=== PATIENT | male | born 1930 | race Caucasian/White ===

== ENCOUNTER 2016-06-29 15:39 | Inpatient (IN) | payer MEDICARE, BC ==
[~2016-06-29] VITALS: Ht 177.8 cm; Wt 80.0 kg
[~2016-06-29 15:39] MED LIST: ENOX40P SQ; ESCI10TA PO; FEXO180T PO; FLUD.1 PO; HYDR10TA23 PO; KNEE IMMOBILIZE1 MIS; MIDO5TAB PO; NAME10TA PO; PLAV75TA29 PO; SODI1TAB PO; TAMS5CAP PO; THERTAB15 PO; ULTR50TA5 PO
[2016-06-29 15:46] VITALS: BP 125/67; PULSE 79; RESP 16; TEMP 98.2; O2SAT 97
[2016-06-29 16:47] LABS: AUTOMATED NEUTROPHIL # 16.9 TH/MM3 (1.8-7.7); BASOPHIL # 0.1 TH/MM3 (0-0.2); BASOPHIL % 0.5 % (0.0-2.0); EOSINOPHIL # 0.2 TH/MM3 (0-0.4); EOSINOPHIL % 1.2 % (0.0-4.0); HEMO FLAGS DIFF FINAL; LYMPH % 3.1 % (9.0-44.0); LYMPHOCYTE # 0.6 TH/MM3 (1.0-4.8); MEAN CELL VOLUME 85.4 FL (80.0-100.0); MEAN CORPUSCULAR HEMOGLOBIN 28.3 PG (27.0-34.0); MEAN CORPUSCULAR HGB CONC 33.1 % (32.0-36.0); NEUT % 88.2 % (16.0-70.0); PLATELET COUNT 357 TH/MM3 (150-450); RED BLOOD COUNT 4.45 MIL/MM3 (4.50-5.90); RED CELL DISTRIBUTION WIDTH 14.6 % (11.6-17.2); WHITE BLOOD COUNT 19.2 TH/MM3 (4.0-11.0)
[2016-06-29 16:56] LABS: APTT (PATIENT) 29.4 SEC (24.3-30.1); PROTHROMBIN TIME - PATIENT 10.7 SEC (9.8-11.6)
[2016-06-29 17:13] LABS: POTASSIUM 3.8 MEQ/L (3.5-5.1)
[2016-06-29] MEDS ORDERED: MILKSUS PO (17:15)
[2016-06-29] MEDS ORDERED: THERTAB15 PO (17:15)
[2016-06-29] MEDS ORDERED: MAPA325T PO (17:15)
[2016-06-29] MEDS ORDERED: ARIC10TA PO (17:15)
[2016-06-29] MEDS ORDERED: DULC10SU3 RECTAL (17:17)
[2016-06-29 17:24] LABS: BACTERIA, URINE MANY /hpf; BLOOD, URINE MOD (NEG); COMMENT (UR) CULTURE INDICATED; CULTURE IF INDICATED CULTURE INDICATED; GLUCOSE,URINE NEG (NEG); KETONE, URINE NEG (NEG); MUCUS URINE MANY /lpf (OCC); NITRITE,URINE NEG (NEG)
[2016-06-29 17:29] LABS: URINE COLOR RED (YELLW/STRAW)
[2016-06-29] MEDS ORDERED: SODIUM CHLOR 0.9% 1000 ML INJ 1,000 ML IV ONE (17:37)
[2016-06-29] MEDS ORDERED: CEFEPIME INJ 2,000 MG in SODIUM CHLORIDE 0.9% INJ 100 ML IV STA (17:37)
--- NOTE | 2016-06-29 17:41 | PD ---
HPI Chief Complaint: Bleeding Time Seen by Provider: 17:40 Travel History International Travel<30 days: No Contact w/Intl Traveler<30days: No Traveled to known affect area: No History of Present Illness HPI Patient is a 85-year-old male brought from an [facility] for hematuria. Patient history of Alzheimer's disease and is able to provide much history, his son is present with power of litigation attorney associate and visits him daily. He states his dad's been having worsening mental status the last week after he developed urinary retention and a Locke catheter was placed. Today he noticed blood in the Locke bag while at the assisted living facility in the that was complaining of lower abdominal pain and occasional back pain. The patient denies any back pain currently. He has bowel movement every other day, denies melena or hematochezia. Per the son staff state that he has not had any blood in his stool. He does have a history of bleeding ulcer. He is on Lovenox as he has a left tibial fracture from a fall on June 11. Patient eyes any fever, chest pain, shortness of breath, headache, dizziness. He denies diarrhea. The son states he has had decreased oral intake. PFSH Past Medical History Hx Anticoagulant Therapy: No Arthritis: Yes Asthma: No Autoimmune Disease: No Anxiety: No Depression: Yes Heart Rhythm Problems: Yes Cancer: No Cardiovascular Problems: Yes (PACEMAKER) High Cholesterol: No Chemotherapy: No Chest Pain: No Congestive Heart Failure: No COPD: No Cerebrovascular Accident: No Diabetes: No Diminished Hearing: No Endocrine: No Gastrointestinal Disorders: Yes (ulcer bleeding) GERD: No Genitourinary: No Hiatal Hernia: No Immune Disorder: No Kidney Stones: No Medical other: Yes (URINARY RETENTION) Musculoskeletal: No Neurologic: Yes (head injury, encephalopathy, memory deficit, L foot drop, ataxia) Psychiatric: Yes Reproductive: No Respiratory: No Migraines: No Radiation Therapy: No Renal Failure: No Seizures: No Sickle Cell Disease: No Sleep Apnea: No Thyroid Disease: No Ulcer: Yes Tetanus Vaccination: Unknown ?: Not Past Surgical History Abdominal Surgery: Yes (BLEEDING ULCER) AICD: No Arteriovenous Shunt: No Body Medical Devices: rib fracture fixation device Cardiac Surgery: Yes (PACE MAKER) Ear Surgery: No Endocrine Surgery: No Eye Surgery: Yes (cataracts) Genitourinary Surgery: No Gynecologic Surgery: No Hysterectomy: No Insulin Pump: No Joint Replacement: No Oral Surgery: No Pacemaker: Yes Thoracic Surgery: No Other Surgery: Yes Social History Alcohol Use: No Tobacco Use: No Substance Use: No Allergies-Medications (Allergen,Severity, Reaction): Coded Allergies: Neosporin (Verified Allergy, Mild, rash, 06/29/16) per son Penicillin (Verified Adverse Reaction, Intermediate, rash , 06/29/16) Reported Meds & Prescriptions Reported Meds & Active Scripts Active Ultram (Tramadol HCl) 50 Mg Tab 50 Mg PO BID PRN 3 Days Flomax (Tamsulosin HCl) 0.4 Mg Cap 0.4 Mg PO HS 30 Days Midodrine 5 Mg Tab 5 Mg PO TID 30 Days Namenda (Memantine) 10 Mg Tab 10 Mg PO BID 30 Days Hydralazine (Hydralazine HCl) 10 Mg Tab 10 Mg PO Q6HR 10 Days Fludrocortisone (Fludrocortisone Acetate) 0.1 Mg Tab 0.1 Mg PO EVERY OTHER DAY 30 Days Escitalopram (Escitalopram Oxalate) 10 Mg Tab 10 Mg PO DAILY 30 Days Lovenox Inj (Enoxaparin Sodium) 40 Mg/0.4 Ml Syr 40 Mg SQ Q24H 10 Days Plavix (Clopidogrel Bisulfate) 75 Mg Tab 75 Mg PO DAILY 30 Days Reported Dulcolax Supp (Bisacodyl) 10 Mg Supp 10 Mg RECTAL HS PRN Mapap (Acetaminophen) 325 Mg Tab 650 Mg PO Q4HR PRN Milk of Magnesia Liq (Magnesium Hydroxide) 400 Mg/5 Ml Susp 30 Ml PO HS PRN Aricept (Donepezil) 10 Mg Tab 10 Mg PO DAILY Thera/Beta-Carotene (Multiple Vitamin) 1 Tab Tab 1 Tab PO DAILY Review of Systems ROS Limitations: Altered Mental Status General / Constitutional: No: Fever HENT: No: Headaches, Lightheadedness, Sore Throat Cardiovascular: No: Chest Pain or Discomfort Respiratory: No: Cough, Shortness of Breath Gastrointestinal: Positive: Abdominal Pain, No: Nausea, Vomiting, Diarrhea, Hematochezia Genitourinary: Positive: Other (Locke in place) Physical Exam Narrative GENERAL: Well-developed and well-nourished adult male in no acute distress. SKIN: Warm and dry. Decreased turgor without tenting. HEAD: Normocephalic and atraumatic. EYES: PERRL bilaterally, 3mm. EOMI bilaterally. No injection or icterus present. No proptosis. Lids without edema or erythema. ENT: Buccal mucosa pink and dry with a small amount of candidiasis present on the right buccal surface. Oropharynx free of erythema, tonsillar hypertrophy, masses, swelling, asymmetry and exudates. Uvula midline and airway patent. NECK: Supple, no meningeal signs. Trachea midline, no JVD. No cervical or facial lymphadenopathy. CARDIOVASCULAR: Regular rate and rhythm without murmurs, rubs, clicks or gallops. Radial and posterior tibial pulses 2+ bilaterally. No pedal edema. Negative bilateral Homans sign. RESPIRATORY: Clear to auscultation bilaterally with symmetrical rise and fall, no distress or use of accessory muscles. GASTROINTESTINAL: Tenderness over the suprapubic and bilateral lower quadrants without rebounding or guarding. Does appear to be some induration in the suprapubic region likely representing a distended bladder.Normal bowel sounds all 4 quadrants. No masses or organomegaly present. Patient has a hemorrhoid at 9 o'clock position. No fissures. Patient is incontinent of stool, slightly decreased rectal tone. No masses or induration of the prostate palpated. MUSCULOSKELETAL: Extremities without clubbing, cyanosis, or edema. No obvious deformities. NEUROLOGIC: CN II-XII grossly intact. Awake and alert. Oriented to person and place but not time. Motor grossly within normal limits. Normal speech. PSYCHIATRIC: Appropriate mood and affect; insight and judgment normal. Data Data Last Documented VS Vital Signs Date Time Temp Pulse Resp B/P Pulse Ox O2 Delivery O2 Flow Rate FiO2 06/29/16 18:38 82 17 112/60 98 Room Air 06/29/16 15:46 98.2 Orders Complete Blood Count With Diff (06/29/16 16:04) Basic Metabolic Panel (Bmp) (06/29/16 16:04) Prothrombin Time / Inr (Pt) (06/29/16 16:04) Act Partial Throm Time (Ptt) (06/29/16 16:04) Urinalysis - C+S If Indicated (06/29/16 16:04) Urine Culture (06/29/16 16:25) Lactic Acid Sepsis Protocol (06/29/16 17:37) Blood Culture (06/29/16 17:37) Cefepime Inj (Maxipime Inj) (06/29/16 17:37) Sodium Chlor 0.9% 1000 Ml Inj (Ns 1000 M (06/29/16 17:37) Ct Abd/Pel W/O Iv Contrast (06/29/16 17:38) Admit Order (Ed Use Only) (06/29/16 18:49) Labs Laboratory Tests Test 06/29/16 06/29/16 16:25 17:50 White Blood Count 19.2 TH/MM3 Red Blood Count 4.45 MIL/MM3 Hemoglobin 12.6 GM/DL Hematocrit 38.0 % Mean Corpuscular Volume 85.4 FL Mean Corpuscular Hemoglobin 28.3 PG Mean Corpuscular Hemoglobin 33.1 % Concent Red Cell Distribution Width 14.6 % Platelet Count 357 TH/MM3 Mean Platelet Volume 9.5 FL Neutrophils (%) (Auto) 88.2 % Lymphocytes (%) (Auto) 3.1 % Monocytes (%) (Auto) 7.0 % Eosinophils (%) (Auto) 1.2 % Basophils (%) (Auto) 0.5 % Neutrophils # (Auto) 16.9 TH/MM3 Lymphocytes # (Auto) 0.6 TH/MM3 Monocytes # (Auto) 1.4 TH/MM3 Eosinophils # (Auto) 0.2 TH/MM3 Basophils # (Auto) 0.1 TH/MM3 CBC Comment DIFF FINAL Differential Comment Prothrombin Time 10.7 SEC Prothromb Time International 1.0 RATIO Ratio Activated Partial 29.4 SEC Thromboplast Time Urine Color RED Urine Turbidity CLOUDY Urine pH 6.0 Urine Specific [place] 1.016 Urine Protein 100 mg/dL Urine Glucose (UA) NEG mg/dL Urine Ketones NEG mg/dL Urine Occult Blood MOD Urine Nitrite NEG Urine Bilirubin NEG Urine Urobilinogen LESS THAN 2.0 MG/DL Urine Leukocyte Esterase LARGE Urine RBC /hpf Urine WBC /hpf Urine WBC Clumps MANY Urine Bacteria MANY /hpf Urine Mucus MANY /lpf Microscopic Urinalysis Comment CULTURE INDICATED Sodium Level 140 MEQ/L Potassium Level 3.8 MEQ/L Chloride Level 103 MEQ/L Carbon Dioxide Level 28.0 MEQ/L Anion Gap 9 MEQ/L Blood Urea Nitrogen 51 MG/DL Creatinine 2.92 MG/DL Estimat Glomerular Filtration 21 ML/MIN Rate Random Glucose 118 MG/DL Calcium Level 8.5 MG/DL Lactic Acid Level 1.8 mmol/L MDM Medical Decision Making Medical Screen Exam Complete: Yes Emergency Medical Condition: Yes Interpretation(s) Laboratory Tests Test 06/29/16 06/29/16 16:25 17:50 White Blood Count 19.2 TH/MM3 (4.0-11.0) Red Blood Count 4.45 MIL/MM3 (4.50-5.90) Hemoglobin 12.6 GM/DL (13.0-17.0) Hematocrit 38.0 % (39.0-51.0) Mean Corpuscular Volume 85.4 FL (80.0-100.0) Mean Corpuscular Hemoglobin 28.3 PG (27.0-34.0) Mean Corpuscular Hemoglobin 33.1 % Concent (32.0-36.0) Red Cell Distribution Width 14.6 % (11.6-17.2) Platelet Count 357 TH/MM3 (150-450) Mean Platelet Volume 9.5 FL (7.0-11.0) Neutrophils (%) (Auto) 88.2 % (16.0-70.0) Lymphocytes (%) (Auto) 3.1 % (9.0-44.0) Monocytes (%) (Auto) 7.0 % (0.0-8.0) Eosinophils (%) (Auto) 1.2 % (0.0-4.0) Basophils (%) (Auto) 0.5 % (0.0-2.0) Neutrophils # (Auto) 16.9 TH/MM3 (1.8-7.7) Lymphocytes # (Auto) 0.6 TH/MM3 (1.0-4.8) Monocytes # (Auto) 1.4 TH/MM3 (0-0.9) Eosinophils # (Auto) 0.2 TH/MM3 (0-0.4) Basophils # (Auto) 0.1 TH/MM3 (0-0.2) CBC Comment DIFF FINAL Differential Comment Prothrombin Time 10.7 SEC (9.8-11.6) Prothromb Time International 1.0 RATIO Ratio Activated Partial 29.4 SEC Thromboplast Time (24.3-30.1) Urine Color RED (YELLW/STRAW) Urine Turbidity CLOUDY (CLEAR) Urine pH 6.0 (5.0-8.5) Urine Specific [place] 1.016 (1.002-1.035) Urine Protein 100 mg/dL (NEG-TRACE) Urine Glucose (UA) NEG mg/dL (NEG) Urine Ketones NEG mg/dL (NEG) Urine Occult Blood MOD (NEG) Urine Nitrite NEG (NEG) Urine Bilirubin NEG (NEG) Urine Urobilinogen LESS THAN 2.0 MG/DL (LESS THAN 2.0) Urine Leukocyte Esterase LARGE (NEG) Urine RBC /hpf (0-3) Urine WBC /hpf (0-5) Urine WBC Clumps MANY (NONE) Urine Bacteria MANY /hpf (NONE) Urine Mucus MANY /lpf (OCC) Microscopic Urinalysis Comment CULTURE INDICATED Sodium Level 140 MEQ/L (136-145) Potassium Level 3.8 MEQ/L (3.5-5.1) Chloride Level 103 MEQ/L (98-107) Carbon Dioxide Level 28.0 MEQ/L (21.0-32.0) Anion Gap 9 MEQ/L (5-15) Blood Urea Nitrogen 51 MG/DL (7-18) Creatinine 2.92 MG/DL (0.60-1.30) Estimat Glomerular Filtration 21 ML/MIN (>89) Rate Random Glucose 118 MG/DL (74-106) Calcium Level 8.5 MG/DL (8.5-10.1) Lactic Acid Level 1.8 mmol/L (0.4-2.0) Differential Diagnosis Urosepsis versus a GI versus glomerulonephritis versus bleeding disorder versus bowel obstruction versus GI bleed Narrative Course Patient is an 85-year-old male with history of Alzheimer's with worsening mental status, hematuria and suprapubic discomfort. He has a Locke catheter in. There is very little urine output and it is grossly bloody. Labs ordered and triage and showed WBC of 19.2 with a neutrophilia. H&H 12.6/38.0. Coags are normal. He is on Lovenox. Urinalysis shows innumerable RBCs and WBCs with WBC clumps and many bacteria. Creatinine 2.92, BUN 51, glucose 118. Patient was given 1 L normal saline bolus, he is not hypotensive or tachycardic. Given cefepime and ordered lactic acid blood cultures. Bladder scan and CT abdomen and pelvis was ordered. Patient was admitted for urosepsis and acute kidney injury, spoke with Dr. Blair. [facility] Point of Care Internal Pos. & Neg. Controls: Passed Fecal Specimen Occult Blood: Negative Diagnosis Primary Impression: Sepsis Qualified Code: A41.9 - Sepsis, due to unspecified organism Additional Impressions: Urinary tract infection Qualified Code: T83.511A - Urinary tract infection associated with indwelling urethral catheter, initial encounter Acute kidney injury Admitting Information Admitting Physician Requests: Admit Condition: Francisco Baxter III Jun 29, 2016 17:40
[2016-06-29 18:38] VITALS: BP 112/60; PULSE 82; RESP 17; O2SAT 98
--- NOTE | 2016-06-29 19:10 | RADRPT ---
EXAM DATE/TIME: 06/29/2016 18:39 [facility] COMPARISON: No previous studies available for comparison. INDICATIONS : Hematuria and suprapubic pain today. ORAL CONTRAST: No oral contrast ingested. RADIATION DOSE: 18.26 CTDIvol (mGy) MEDICAL HISTORY : Cardiovascular disease. SURGICAL HISTORY : None. ENCOUNTER: Initial ACUITY: 1 day PAIN SCALE: 8/10 LOCATION: Bilateral lower quadrant TECHNIQUE: Volumetric scanning of the abdomen and pelvis was performed. Using automated exposure control and ad justment of the mA and/or kV according to patient size, radiation dose was kept as low as reasonably achievable to obtain optimal diagnostic quality images. FINDINGS: LOWER LUNGS: There is scarring and/or rounded atelectasis in the right posterior lung base. There are additional p atchy areas of opacity in the right lower lobe. LIVER: Homogeneous density with benign appearing low attenuation cystic lesions in the left lobe. There is n o dilation of the biliary tree. No calcified gallstones. SPLEEN: Normal size without lesion. PANCREAS: Within normal limits. KIDNEYS: Normal in size and shape. There is a tiny nonobstructing 1 mm right renal calculus. There is mild to moderate bilateral hydronephrosis with mild prominence of the ureters. ADRENAL GLANDS: Within normal limits. VASCULAR: There is no aortic aneurysm. BOWEL/MESENTERY: There is a nonspecific bowel gas pattern with multiple loops of nondilated air-containing small bowel with several small air-fluid levels. Gas and stool is noted segmentally in the colon. The distal sig moid colon appears thickened with mild surrounding inflammatory change.. ABDOMINAL WALL: Within normal limits. RETROPERITONEUM: There is no lymphadenopathy. BLADDER: The urinary bladder is distended and rises into the lower anterior abdominal cavity. This measures up to 16 cm in caudocranial dimension. There is no distinct mass on this noncontrast study. REPRODUCTIVE: The prostate gland is diffusely inhomogeneous and prominent with impression on the bladder base. A Fo jai catheter is present with the balloon located at the level of the base of the penis. The catheter does not extend into the bladder. INGUINAL: There is no lymphadenopathy or hernia. MUSCULOSKELETAL: Osteopenia, degenerative change and scoliosis are present. CONCLUSION: 1. The Locke catheter tip and balloon catheter are located in the base of the penis and not in the bl adder. 2. The urinary bladder is distended and rises into the lower abdomen. There is evidence of bilateral mild to moderate hydronephrosis and mild prominence of the ureters. 3. Benign-appearing cystic structures in the liver. 4. Tiny nonobstructing right renal calculus. 5. Nonspecific bowel gas pattern. The distal sigmoid colon appears thickened with mild surrounding i nflammatory change. Kevin Mar MD on June 29, 2016 at 19:03 Board Certified Radiologist. This report was verified electronically.
--- NOTE | 2016-06-29 19:21 | PD ---
Physical Exam Date Seen by Provider: Jun 29, 2016 Time Seen by Provider: 18:00 Narrative I, Dr. De La Garza, have reviewed the advance practice practitioner's documentation and am in agreement, met with the patient face to face, made the diagnosis, and the medical decision making was done by me. *My assessment and Findings: Patient seen and evaluated with PA, please see PA note for further details. Here brought in by family because of blood in the urine, lethargy, disorientation. Laboratory Tests Test 06/29/16 16:25 White Blood Count 19.2 TH/MM3 (4.0-11.0) Red Blood Count 4.45 MIL/MM3 (4.50-5.90) Hemoglobin 12.6 GM/DL (13.0-17.0) Hematocrit 38.0 % (39.0-51.0) Neutrophils (%) (Auto) 88.2 % (16.0-70.0) Lymphocytes (%) (Auto) 3.1 % (9.0-44.0) Neutrophils # (Auto) 16.9 TH/MM3 (1.8-7.7) Lymphocytes # (Auto) 0.6 TH/MM3 (1.0-4.8) Monocytes # (Auto) 1.4 TH/MM3 (0-0.9) Urine Color RED (YELLW/STRAW) Urine Turbidity CLOUDY (CLEAR) Urine Protein 100 mg/dL (NEG-TRACE) Urine Occult Blood MOD (NEG) Urine Leukocyte Esterase LARGE (NEG) Urine WBC Clumps MANY (NONE) Urine Bacteria MANY /hpf (NONE) Urine Mucus MANY /lpf (OCC) Blood Urea Nitrogen 51 MG/DL (7-18) Creatinine 2.92 MG/DL (0.60-1.30) Estimat Glomerular Filtration 21 ML/MIN (>89) Rate Random Glucose 118 MG/DL (74-106) Last 24 hours Impressions Abdomen/Pelvis CT 06/29/16 [id number] Signed Impressions: Service Date/Time: Wednesday, June 29, 2016 18:39 - CONCLUSION: 1. The Locke catheter tip and balloon catheter are located in the base of the penis and not in the bladder. 2. The urinary bladder is distended and rises into the lower abdomen. There is evidence of bilateral mild to moderate hydronephrosis and mild prominence of the ureters. 3. Benign-appearing cystic structures in the liver. 4. Tiny nonobstructing right renal calculus. 5. Nonspecific bowel gas pattern. The distal sigmoid colon appears thickened with mild surrounding inflammatory change. Kevin Mar MD Lab work and exam indicative of UTI with sepsis. Sepsis protocol initiated in the ER and IV antibiotics were given after cultures are drawn. Case is discussed with family practice resident service for admission. Data Data Last Documented VS Vital Signs Date Time Temp Pulse Resp B/P Pulse Ox O2 Delivery O2 Flow Rate FiO2 06/29/16 18:38 82 17 112/60 98 Room Air 06/29/16 15:46 98.2 Orders Complete Blood Count With Diff (06/29/16 16:04) Basic Metabolic Panel (Bmp) (06/29/16 16:04) Prothrombin Time / Inr (Pt) (06/29/16 16:04) Act Partial Throm Time (Ptt) (06/29/16 16:04) Urinalysis - C+S If Indicated (06/29/16 16:04) Urine Culture (06/29/16 16:25) Lactic Acid Sepsis Protocol (06/29/16 17:37) Blood Culture (06/29/16 17:37) Cefepime Inj (Maxipime Inj) (06/29/16 17:37) Sodium Chlor 0.9% 1000 Ml Inj (Ns 1000 M (06/29/16 17:37) Ct Abd/Pel W/O Iv Contrast (06/29/16 17:38) Admit Order (Ed Use Only) (06/29/16 18:49) Labs Laboratory Tests Test 06/29/16 06/29/16 16:25 17:50 White Blood Count 19.2 TH/MM3 Red Blood Count 4.45 MIL/MM3 Hemoglobin 12.6 GM/DL Hematocrit 38.0 % Mean Corpuscular Volume 85.4 FL Mean Corpuscular Hemoglobin 28.3 PG Mean Corpuscular Hemoglobin 33.1 % Concent Red Cell Distribution Width 14.6 % Platelet Count 357 TH/MM3 Mean Platelet Volume 9.5 FL Neutrophils (%) (Auto) 88.2 % Lymphocytes (%) (Auto) 3.1 % Monocytes (%) (Auto) 7.0 % Eosinophils (%) (Auto) 1.2 % Basophils (%) (Auto) 0.5 % Neutrophils # (Auto) 16.9 TH/MM3 Lymphocytes # (Auto) 0.6 TH/MM3 Monocytes # (Auto) 1.4 TH/MM3 Eosinophils # (Auto) 0.2 TH/MM3 Basophils # (Auto) 0.1 TH/MM3 CBC Comment DIFF FINAL Differential Comment Prothrombin Time 10.7 SEC Prothromb Time International 1.0 RATIO Ratio Activated Partial 29.4 SEC Thromboplast Time Urine Color RED Urine Turbidity CLOUDY Urine pH 6.0 Urine Specific [place] 1.016 Urine Protein 100 mg/dL Urine Glucose (UA) NEG mg/dL Urine Ketones NEG mg/dL Urine Occult Blood MOD Urine Nitrite NEG Urine Bilirubin NEG Urine Urobilinogen LESS THAN 2.0 MG/DL Urine Leukocyte Esterase LARGE Urine RBC /hpf Urine WBC /hpf Urine WBC Clumps MANY Urine Bacteria MANY /hpf Urine Mucus MANY /lpf Microscopic Urinalysis Comment CULTURE INDICATED Sodium Level 140 MEQ/L Potassium Level 3.8 MEQ/L Chloride Level 103 MEQ/L Carbon Dioxide Level 28.0 MEQ/L Anion Gap 9 MEQ/L Blood Urea Nitrogen 51 MG/DL Creatinine 2.92 MG/DL Estimat Glomerular Filtration 21 ML/MIN Rate Random Glucose 118 MG/DL Calcium Level 8.5 MG/DL Lactic Acid Level 1.8 mmol/L [facility] Medical Record Reviewed: Yes Supervised Visit with TONY: Yes Diagnosis Primary Impression: Sepsis Qualified Code: A41.9 - Sepsis, due to unspecified organism Additional Impressions: Acute kidney injury Urinary tract infection Qualified Code: T83.511A - Urinary tract infection associated with indwelling urethral catheter, initial encounter Admitting Information Admitting Physician Requests: Admit Condition: Miguel Martínez MD Jun 29, 2016 19:21
[2016-06-29 19:49] VITALS: BP 145/81; PULSE 81; RESP 16; O2SAT 98
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
[2016-06-29] MEDS ORDERED: NALOXONE HCL 0.4 MG/ML AMP IV PRN (21:15)
[2016-06-29] MEDS ORDERED: SODIUM CHLORIDE 0.9% FLUSH 5 ML FLUSH FLUSH PRN (21:15)
[2016-06-29] MEDS ORDERED: MAGNESIUM HYDROXIDE SUSP 30 ML CUP PO PRN (21:30)
[2016-06-29] MEDS ORDERED: traMADol HCL 50 MG TAB PO PRN (21:30)
[2016-06-29 21:34] LABS: BACTERIA, URINE MANY /hpf; BLOOD, URINE SMALL (NEG); COMMENT (UR) CATH-CULTURE IND; CULTURE IF INDICATED CATH CULTURE IND; GLUCOSE,URINE NEG (NEG); HYALINE CAST, URINE 2 /lpf (RARE); KETONE, URINE NEG (NEG); MUCUS URINE FEW /lpf (OCC); NITRITE,URINE NEG (NEG); PH, URINE 6.5 (5.0-8.5); URINE COLOR YELLOW (YELLW/STRAW)
--- NOTE | 2016-06-29 21:47 | RADRPT ---
EXAM DATE/TIME: 06/29/2016 21:33 [facility] COMPARISON: CT BRAIN W/O CONTRAST, June 12, 2016, 8:50. INDICATIONS : Altered mental status after fall two weeks ago; evaluate for subdural hematoma. RADIATION DOSE: 56.35 CTDIvol (mGy) MEDICAL HISTORY : Cardiovascular disease. Plavix. SURGICAL HISTORY : Pacemaker. ENCOUNTER: Initial ACUITY: 2 weeks PAIN SCALE: Non-responsive LOCATION: cranial TECHNIQUE: Multiple contiguous axial images were obtained of the head. Using automated exposure control and adj ustment of the mA and/or kV according to patient size, radiation dose was kept as low as reasonably a chievable to obtain optimal diagnostic quality images. FINDINGS: CEREBRUM: The ventricles are normal for age with diffuse atrophic change with sulcal and ventricular prominence . Periventricular white matter lucencies are again noted consistent with chronic small vessel ischemi c change. No evidence of midline shift, mass lesion, hemorrhage or acute infarction. No extra-axial fluid collections are seen. POSTERIOR FOSSA: The cerebellum and brainstem are intact. The 4th ventricle is midline. The cerebellopontine angle i s unremarkable. EXTRACRANIAL: The visualized portion of the orbits is intact. SKULL: The calvaria is intact. No evidence of skull fracture. CONCLUSION: Stable appearance with no acute hemorrhage or infarction. Kevin Mar MD on June 29, 2016 at 21:44 Board Certified Radiologist. This report was verified electronically.
[2016-06-29 22:00] VITALS: PULSE 86; RESP 27; O2SAT 94
[2016-06-29] MEDS ORDERED: LEVOFLOXACIN 750 MG PREMIX INJ 150 ML IV ONE (22:00)
[2016-06-29] MEDS: SODIUM CHLOR 0.9% 1000 ML INJ 1,000 ML IV SCH (22:00)
[2016-06-29] MEDS ORDERED: ONDANSETRON HCL 4 MG/2 ML VIAL IVP PRN (22:00)
[2016-06-29] MEDS ORDERED: ACETAMINOPHEN 325 MG TAB PO PRN (22:00)
--- NOTE | 2016-06-29 22:03 | RADRPT ---
EXAM DATE/TIME: 06/29/2016 21:48 [facility] COMPARISON: CHEST SINGLE AP, June 19, 2016, 9:25. INDICATIONS : Altered Mental Status MEDICAL HISTORY : None. SURGICAL HISTORY : Pacemaker. ENCOUNTER: Initial ACUITY: 1 day PAIN SCORE: 0/10 LOCATION: chest FINDINGS: A single view of the chest demonstrates the lungs to be symmetrically aerated without evidence of mas s, infiltrate or effusion. The cardiomediastinal contours are unremarkable. There is a distal right clavicular fracture deformity. There are healed right-sided rib fractures. The left subclavian AV seq uential transvenous pacer remains in place. Degenerative changes are noted in the left glenohumeral j oint. CONCLUSION: No acute disease. Kevin Mar MD on June 29, 2016 at 22:00 Board Certified Radiologist. This report was verified electronically.
[2016-06-29] MEDS: metroNIDAZOLE 500 MG INJ 100 ML IV SCH (22:46)
[2016-06-29 23:00] VITALS: BP 113/61; PULSE 76; RESP 27
[2016-06-29] MEDS ORDERED: hydrALAZINE HCL 10 MG TAB PO PRN (23:15)
[2016-06-30] VITALS (7 sets, daily range): BP systolic 100–145; BP diastolic 55–88; PULSE 55–115; RESP 16–24; TEMP 97.6–98.4; O2SAT 93–96
[2016-06-30] MEDS: HEPARIN SODIUM - SQ 10,000 UNITS/ML VIAL SQ SCH ×3 (00:54→21:20)
[2016-06-30 04:06] LABS: AUTOMATED NEUTROPHIL # 11.7 TH/MM3 (1.8-7.7); BASOPHIL # 0.1 TH/MM3 (0-0.2); BASOPHIL % 0.5 % (0.0-2.0); EOSINOPHIL # 0.4 TH/MM3 (0-0.4); EOSINOPHIL % 2.9 % (0.0-4.0); HEMATOCRIT 33.3 % (39.0-51.0); HEMO FLAGS DIFF FINAL; LYMPH % 5.8 % (9.0-44.0); LYMPHOCYTE # 0.8 TH/MM3 (1.0-4.8); MEAN CELL VOLUME 84.8 FL (80.0-100.0); MEAN CORPUSCULAR HGB CONC 33.1 % (32.0-36.0); MONO % 7.1 % (0.0-8.0); NEUT % 83.7 % (16.0-70.0); PLATELET COUNT 334 TH/MM3 (150-450); RED BLOOD COUNT 3.93 MIL/MM3 (4.50-5.90); RED CELL DISTRIBUTION WIDTH 14.7 % (11.6-17.2)
[2016-06-30 04:36] LABS: BICARBONATE 20.9 MEQ/L (21.0-32.0); POTASSIUM 3.5 MEQ/L (3.5-5.1)
[2016-06-30] MEDS: metroNIDAZOLE 500 MG INJ 100 ML IV SCH (06:40)
[2016-06-30] MEDS: SODIUM CHLOR 0.9% 1000 ML INJ 1,000 ML IV SCH ×2 (06:40→12:40)
[2016-06-30] MEDS: SODIUM CHLORIDE 0.9% FLUSH 5 ML FLUSH FLUSH SCH ×2 (08:57→21:21)
[2016-06-30] MEDS: ESCITALOPRAM OXALATE 10 MG TAB PO SCH (09:00)
[2016-06-30] MEDS: MEMANTINE HCL 10 MG TAB PO SCH ×2 (09:00→21:20)
[2016-06-30] MEDS: DONEPEZIL HCL 5 MG TAB PO SCH (09:00)
--- NOTE | 2016-06-30 10:12 | HHI.FPPN ---
Subjective Remarks Patient seen this morning. No acute events overnight. Vitals have been WNL. Patient oriented to self only. Has no complaints. Not in any pain. Appetite good. No nausea or vomiting. Per nursing, no concerns with behavior overnight. Good UOP. Objective Vitals Vital Signs Date Time Temp Pulse Resp B/P Pulse Ox O2 Delivery O2 Flow Rate FiO2 06/30/16 08:56 74 18 132/75 96 Room Air 06/30/16 06:00 55 18 145/72 96 Room Air 06/30/16 00:57 109 24 111/67 93 Room Air 06/29/16 23:00 76 27 113/61 Room Air 06/29/16 22:00 86 27 94 Room Air 06/29/16 19:49 81 16 145/81 98 Room Air 06/29/16 18:38 82 17 112/60 98 Room Air 06/29/16 16:36 88 17 97 Room Air 06/29/16 15:46 98.2 79 16 125/67 97 I/O 06/29/16 06/29/16 06/29/16 06/30/16 06/30/16 06/30/16 07:00 15:00 23:00 07:00 15:00 23:00 Output Total 1500 ml 1650 ml Balance -1500 ml -1650 ml Output Urine Total 1500 ml 1650 ml # Voids 0 Result Diagram: 06/30/16 0348 06/30/16 0348 Objective Remarks GENERAL: Patient appears comfortable, in no acute distress. SKIN: Warm and dry, no rashes appreciated. Some scabs on abdomen. Back without evidence of decubitus ulcer. EYES: No scleral icterus, injection, or drainage. Pinpoint pupils. EOM grossly intact. CARDIOVASCULAR: Regular rate and rhythm without murmurs. Normal peripheral perfusion in lower extremities; DP pulses diminished. RESPIRATORY: Normal respiratory rate. Lungs clear to auscultation bilaterally. GASTROINTESTINAL: Abdomen soft, minimal tenderness to palpation of lower abdomen. Distention/protrusion of lower abdomen suggestive of bladder distention. Bowel sounds normal. MUSCULOSKELETAL: No lower extremity swelling. No appreciated calf asymmetry. NEURO/PSYCH: Awake, alert. Oriented to self only. A/P Assessment and Plan 85 year old male admitted with complaint of hematuria and AMS. Now improving on IV antibiotics. Discharge Planning Likely discharge in next 1-2 days. Waiting on urine and blood cultures. Will discuss with Dr. Egan. Problem List: (1) Urinary tract infection Status: Acute Plan: UA suspicious for UTI with large LE and many bacteria. Leukocytosis on admission, now improving. Lactic Acid 1.8. Continue antibiotic therapy (will cover UTI and colon thickening/ intraperitoneal processes) -Continue Levaquin 500mg q48hrs (06/29-) -Continue Flagyl 500mg q8hrs -s/p Cefepime 2gm x1 in ED Continue Vu catheter at this time due to suspected retention; will likely need to remove to assuring clearance of infection Cultures: Urine cultures x2 pending Blood cultures pending (2) Acute kidney injury Status: Acute Plan: Improving. Creatinine trending down to 2.0 today compared to 2.9 yesterday. -Continue vu -Continue maintenance IV fluids. DC tonight to avoid fluid overload. -Recheck BMP tomorrow morning (3) Colon wall thickening Status: Acute Plan: Uncertain cause at this time. Concern for possible CDiff, given reported diarrhea. -continue antibiotics, as above -check CDiff, if any loose stool -Hemoccult negative in ED -Leukocytosis negative, as above Impression: WBC 19.2 on admission. Likely secondary to UTI; however, CT of abdomen/pelvis also suggestive of possible colonic infection. Abdomen/Pelvis CT- "distal sigmoid colon appears thickened with mild surrounding inflammatory change" (4) Altered mental status Status: Acute Plan: Improving. Likely related to above. CT head on admission negative. We will empirically treat for urinary tract/intra-abdominal infection We'll provide patient with sitter to assure maintenance of IV lines and Vu catheter We'll monitor and work-up further if deemed appropriate (5) HTN (hypertension) Status: Chronic Plan: Vitals essentially WNL o/n. We'll hold antihypertensives at this time Hydralazine as when necessary We'll restart home Midodrine/fludrocortisone if patient hypotensive (6) Dementia Status: Chronic Plan: Continue home donepezil Continue home memantine Continue home escitalopram for mood symptoms (7) Cerebrovascular disease Status: Acute Plan: Continue home clopidogrel (8) Tibial plateau fracture, left Status: Acute Plan: -Continue left knee immobilizer when out of bed; nonweightbearing -Continue physical therapy -F/U with Ortho as outpatient Impression: Fall injury 06/12; CT LLE showing subtle occult fracture involving the posterior aspects of the medial tibial plateau without depression (9) Cardiac pacemaker Status: Chronic Plan: We'll monitor with telemetry initially during hospitalization (10) DVT Prophylaxis Status: Acute Plan: Continue heparin 5000 units twice a day Continue bilateral SCDs (11) Fluids, Electrolytes, and Nutrition Status: Acute Plan: Fluids: Maintenance 120 ml/hr today; will plan to stop tonight assuming adequate oral intake Electrolytes: We'll monitor and replete as needed Nutrition: Heart healthy diet due to prior cerebrovascular disease Problem Qualifiers (1) Urinary tract infection: Qualified Code: T83.511A - Urinary tract infection associated with indwelling urethral catheter, initial encounter Tyron Zafar MD R3 Jun 30, 2016 10:12
[2016-06-30] MEDS: CLOPIDOGREL 75 MG TAB PO SCH (10:18)
[2016-06-30] MEDS: metroNIDAZOLE 500 MG TAB PO SCH ×2 (12:43→21:20)
[2016-06-30 13:29] LABS: AUTOMATED NEUTROPHIL # 7.7 TH/MM3 (1.8-7.7); BASOPHIL % 0.5 % (0.0-2.0); EOSINOPHIL # 0.3 TH/MM3 (0-0.4); EOSINOPHIL % 3.4 % (0.0-4.0); HEMATOCRIT 32.9 % (39.0-51.0); HEMO FLAGS DIFF FINAL; LYMPH % 8.1 % (9.0-44.0); LYMPHOCYTE # 0.8 TH/MM3 (1.0-4.8); MEAN CELL VOLUME 85.2 FL (80.0-100.0); MEAN CORPUSCULAR HEMOGLOBIN 28.4 PG (27.0-34.0); MEAN CORPUSCULAR HGB CONC 33.3 % (32.0-36.0); MONO % 7.4 % (0.0-8.0); NEUT % 80.6 % (16.0-70.0); PLATELET COUNT 351 TH/MM3 (150-450); RED BLOOD COUNT 3.86 MIL/MM3 (4.50-5.90); RED CELL DISTRIBUTION WIDTH 14.9 % (11.6-17.2); WHITE BLOOD COUNT 9.6 TH/MM3 (4.0-11.0)
[2016-06-30 13:57] LABS: BICARBONATE 24.7 MEQ/L (21.0-32.0); POTASSIUM 3.4 MEQ/L (3.5-5.1)
[2016-06-30] MEDS ORDERED: DOCUSATE SODIUM 50 MG/SENNA 8.6 MG TAB PO SCH (21:00)
[2016-06-30] MEDS ORDERED: TAMSULOSIN HCL 0.4 MG CAP PO SCH (21:00)
[2016-07-01 03:31] VITALS: BP 144/74; PULSE 79; RESP 18; TEMP 96.7; O2SAT 95
[2016-07-01 04:47] LABS: AUTOMATED NEUTROPHIL # 7.3 TH/MM3 (1.8-7.7); BASOPHIL # 0.1 TH/MM3 (0-0.2); BASOPHIL % 0.9 % (0.0-2.0); EOSINOPHIL # 0.6 TH/MM3 (0-0.4); EOSINOPHIL % 6.5 % (0.0-4.0); HEMATOCRIT 31.7 % (39.0-51.0); HEMO FLAGS DIFF FINAL; LYMPH % 11.3 % (9.0-44.0); LYMPHOCYTE # 1.1 TH/MM3 (1.0-4.8); MEAN CELL VOLUME 84.3 FL (80.0-100.0); MEAN CORPUSCULAR HEMOGLOBIN 27.8 PG (27.0-34.0); MONO % 8.8 % (0.0-8.0); NEUT % 72.5 % (16.0-70.0); PLATELET COUNT 372 TH/MM3 (150-450); RED BLOOD COUNT 3.76 MIL/MM3 (4.50-5.90); RED CELL DISTRIBUTION WIDTH 14.8 % (11.6-17.2)
[2016-07-01 05:23] LABS: ALKALINE PHOSPHATASE 80 U/L (45-117); ALT (GPT) 22 U/L (12-78); ANION GAP 7 MEQ/L (5-15); AST (GOT) 16 U/L (15-37); BICARBONATE 24.7 MEQ/L (21.0-32.0); BLOOD UREA NITROGEN 22 MG/DL (7-18); CHLORIDE 114 MEQ/L (98-107); GLOMERULAR FILTRATION RATE 61 ML/MIN (>89); MAGNESIUM 2.1 MG/DL (1.5-2.5); POTASSIUM 3.4 MEQ/L (3.5-5.1); SODIUM (NA) 146 MEQ/L (136-145); TOTAL BILIRUBIN ADULT 0.2 MG/DL (0.2-1.0)
[2016-07-01] MEDS: metroNIDAZOLE 500 MG TAB PO SCH (06:03)
[2016-07-01 08:01] VITALS: BP 155/89; PULSE 90; RESP 20; TEMP 97.8; O2SAT 94
[2016-07-01] MEDS: HEPARIN SODIUM - SQ 10,000 UNITS/ML VIAL SQ SCH (08:29)
[2016-07-01] MEDS: DONEPEZIL HCL 5 MG TAB PO SCH (08:29)
[2016-07-01] MEDS: CLOPIDOGREL 75 MG TAB PO SCH (08:29)
[2016-07-01] MEDS: ESCITALOPRAM OXALATE 10 MG TAB PO SCH (08:29)
[2016-07-01] MEDS: MEMANTINE HCL 10 MG TAB PO SCH (08:29)
[2016-07-01] MEDS: SODIUM CHLORIDE 0.9% FLUSH 5 ML FLUSH FLUSH SCH (08:29)
--- NOTE | 2016-07-01 08:59 | HHI.FPPN ---
Subjective Remarks Patient seen this morning. No acute events overnight. SBP up to the 150s, otherwise vitals WNL. Patient has no complaints this morning. Denies any pain or SOB. Appetite good. Per nursing, no events overnight. No behavioral concerns. (Tyron Zafar MD R3) Objective Vitals Vital Signs Date Time Temp Pulse Resp B/P Pulse Ox O2 Delivery O2 Flow Rate FiO2 07/01/16 08:01 97.8 90 20 155/89 94 07/01/16 03:31 96.7 79 18 144/74 95 06/30/16 23:35 97.6 82 17 142/88 95 06/30/16 21:22 97.9 80 17 139/78 96 06/30/16 16:05 98.4 71 16 142/64 95 06/30/16 11:13 98.4 115 16 100/55 95 06/30/16 08:56 74 18 132/75 96 Room Air I/O 06/30/16 06/30/16 06/30/16 07/01/16 07/01/16 07/01/16 07:00 15:00 23:00 07:00 15:00 23:00 Intake Total 600 ml 360 ml 120 ml Output Total 1500 ml 1650 ml 1100 ml 1000 ml Balance -1500 ml -1650 ml -500 ml -640 ml 120 ml Intake Oral 240 ml 360 ml 120 ml IV Total 360 ml Output Urine Total 1500 ml 1650 ml 1100 ml 1000 ml # Voids 0 # Bowel Movements 2 1 (Tyron Zafar MD R3) Result Diagram: 07/01/1641907/01/16419 Objective Remarks GENERAL: Elderly male sitting up in bed. In NAD. SKIN: Warm and dry, no rashes appreciated. Some scabs on abdomen. Back without evidence of decubitus ulcer. EYES: No scleral icterus, injection, or drainage. CARDIOVASCULAR: Regular rate and rhythm without murmurs. Normal peripheral perfusion in lower extremities; DP pulses diminished. RESPIRATORY: Normal respiratory rate. Lungs clear to auscultation bilaterally. GASTROINTESTINAL: Abdomen soft, minimal tenderness to palpation of lower abdomen. Distention/protrusion of lower abdomen suggestive of bladder distention. Bowel sounds normal. MUSCULOSKELETAL: No lower extremity swelling. No calf tenderness. NEURO/PSYCH: Awake, alert. Oriented to self only. (Tyron Zafar MD R3) A/P Assessment and Plan 85 year old male admitted with complaint of hematuria and AMS. Now improving on IV antibiotics. Discharge Planning Likely discharge today. DC to SNF with vu. Bladder training at SNF. Will discuss with Dr. Egan. (Tyron Zafar MD R3) Attending Attestation Patient seen and examined. Case reviewed and discussed with the resident team. Agree with plan of care as discussed with me and documented in the resident note. (Juan Carlos Egan MD) Problem List: (1) Urinary tract infection Status: Acute Plan: UA suspicious for UTI with large LE and many bacteria. Leukocytosis on admission, now improving. Lactic Acid 1.8. Continue antibiotic therapy (will cover UTI and colon thickening/ intraperitoneal processes) -Continue Levaquin 500mg q48hrs (06/29-) -DC Flagyl at this time (06/29-07/01). Low suspicion for CDiff/colitis given absence of diarrhea. -s/p Cefepime 2gm x1 in ED Continue Vu catheter at this time due to suspected retention; will likely need to remove to assuring clearance of infection Cultures: Urine cultures x2 Gram - domitila Blood cultures negative x1 day (2) Acute kidney injury Status: Acute Plan: Resolved. Creatinine WNL today. -Continue vu -DC IVF (3) Colon wall thickening Status: Acute Plan: Uncertain cause at this time. Initial concern for CDiff, but no diarrhea during this admission. -continue antibiotics, as above -check CDiff if any loose stool -Hemoccult negative in ED Impression: WBC 19.2 on admission. Likely secondary to UTI; however, CT of abdomen/pelvis also suggestive of possible colonic infection. Abdomen/Pelvis CT- "distal sigmoid colon appears thickened with mild surrounding inflammatory change" (4) Altered mental status Status: Acute Plan: Resolved. Patient awake and alert today. Likely related to above. CT head on admission negative. We will empirically treat for urinary tract/intra-abdominal infection We'll provide patient with sitter to assure maintenance of IV lines and Vu catheter We'll monitor and work-up further if deemed appropriate (5) HTN (hypertension) Status: Chronic Plan: SBP 150s this morning, acceptable for his age. We'll hold antihypertensives at this time Hydralazine as when necessary Restart midodrine given history of orthostatic hypotension (6) Dementia Status: Chronic Plan: Continue home donepezil Continue home memantine Continue home escitalopram for mood symptoms (7) Cerebrovascular disease Status: Acute Plan: Continue home clopidogrel (8) Tibial plateau fracture, left Status: Acute Plan: -Continue left knee immobilizer when out of bed; nonweightbearing -Continue physical therapy -F/U with Ortho as outpatient Impression: Fall injury 06/12; CT LLE showing subtle occult fracture involving the posterior aspects of the medial tibial plateau without depression (9) Cardiac pacemaker Status: Chronic Plan: We'll monitor with telemetry initially during hospitalization (10) DVT Prophylaxis Status: Acute Plan: Continue heparin 5000 units twice a day Continue bilateral SCDs (11) Fluids, Electrolytes, and Nutrition Status: Acute Plan: Fluids: DC IVF at this time Electrolytes: We'll monitor and replete as needed Nutrition: Heart healthy diet due to prior cerebrovascular disease (Tyron Zafar MD R3) Problem Qualifiers (1) Urinary tract infection: Qualified Code: T83.511A - Urinary tract infection associated with indwelling urethral catheter, initial encounter Tyron Zafar MD R3 Jul 01, 2016 08:59 Juan Carlos Egan MD Jul 01, 2016 19:25
[2016-07-01] MEDS: MIDODRINE 5 MG TAB PO SCH ×2 (09:00→13:00)
[2016-07-01] MEDS ORDERED: FLUDROCORTISONE ACETATE 0.1 MG TAB PO SCH (09:00)
[2016-07-01] MEDS ORDERED: LEVA750T PO ×2 (09:01→09:03)
--- NOTE | 2016-07-01 09:02 | HHI.DCPOC ---
Discharge Care Plan Diagnosis: (1) UTI (urinary tract infection) Goals to Promote Your Health * To prevent worsening of your condition and complications * To maintain your health at the optimal level Directions to Meet Your Goals Take your medications as prescribed Follow your dietary instruction Follow activity as directed Keep your appointments as scheduled Take your immunizations and boosters as scheduled If your symptoms worsen call your PCP, if no PCP go to Urgent Care Center or Emergency Room Smoking is Dangerous to Your Health. Avoid second hand smoke Call the 24-hour hour crisis hotline for domestic abuse at Tyron Zafar MD R3 Jul 01, 2016 09:02
[2016-07-01 12:00] VITALS: BP 135/84; PULSE 90; RESP 18; TEMP 98.4; O2SAT 95
[2016-07-01] MEDS ORDERED: hydrALAZINE HCL 10 MG TAB PO SCH (12:00)
[2016-07-01] MEDS ORDERED: LEVOFLOXACIN 500 MG PREMIX INJ 100 ML IV SCH (22:00)
[2016-07-16] MEDS ORDERED: ULTR50TA5 PO (13:32)
[2016-07-23] MEDS ORDERED: PROS5TAB PO (10:52)
[2016-07-23] MEDS ORDERED: FLOR250C PO (16:25)
== END 2016-07-01 13:59 | DRG 699 ==
LOC: NEPC 15:39 → NEDA 18:51 → NEDH 22:51 → N07A 06-30 20:50
PROVIDERS: ADMIT Family Medicine; ATTEND Family Medicine
DX: T83.511A Infection and inflammatory reaction due to indwelling urethral catheter, initial encounter (principal); N17.9 Acute kidney failure, unspecified; N13.30 Unspecified hydronephrosis; G30.9 Alzheimer's disease, unspecified; R31.9 Hematuria, unspecified; F02.80 Dementia in other diseases classified elsewhere, unspecified severity, without behavioral disturbance, psychotic disturbance, mood disturbance, and anxiety; S82.142A Displaced bicondylar fracture of left tibia, initial encounter for closed fracture; N39.0 Urinary tract infection, site not specified; R19.7 Diarrhea, unspecified; I10 Essential (primary) hypertension; Z86.73 Personal history of transient ischemic attack (TIA), and cerebral infarction without residual deficits; I67.9 Cerebrovascular disease, unspecified; Z95.0 Presence of cardiac pacemaker; M19.90 Unspecified osteoarthritis, unspecified site; R33.9 Retention of urine, unspecified; Z87.11 Personal history of peptic ulcer disease; Z87.891 Personal history of nicotine dependence; Z91.81 History of falling
CPT/HCPCS: 70450; 71010; 74176; 80048; 80053; 81001; 83605; 83735; 84100; 85025; 85610; 85730; 87040; 87077; 87086; 87186; 96360; J0692; J1644; J1956; J7030

== ENCOUNTER 2016-07-08 11:41 | Inpatient (IN) | payer MEDICARE, BC ==
[~2016-07-08] VITALS: Ht 182.9 cm; Wt 76.4 kg
[~2016-07-08 11:41] MED LIST changes: +ARIC10TA PO; +DULC10SU3 RECTAL; -ENOX40P SQ; -FEXO180T PO; -FLUD.1 PO; -HYDR10TA23 PO; -KNEE IMMOBILIZE1 MIS; +LEVA750T PO; +MAPA325T PO; +MILKSUS PO; -SODI1TAB PO
[2016-07-08 12:00] VITALS: BP 96/54; PULSE 86; RESP 16; TEMP 100.9; O2SAT 91
[2016-07-08 12:09] VITALS: BP 96/54; PULSE 86; RESP 16; TEMP 100.9; O2SAT 91
[2016-07-08] MEDS ORDERED: VANCOMYCIN INJ 1,000 MG in SODIUM CHLOR 0.9% 250 ML INJ 250 ML IV STA (12:29)
[2016-07-08] MEDS ORDERED: SODIUM CHLOR 0.9% 1000 ML INJ 1,000 ML IV ONE (12:30)
[2016-07-08] MEDS ORDERED: ACETAMINOPHEN 650 MG SUPP RECTAL ONE (12:30)
[2016-07-08 13:04] LABS: AUTOMATED NEUTROPHIL # 26.9 TH/MM3 (1.8-7.7); BASOPHIL # 0.1 TH/MM3 (0-0.2); BASOPHIL % 0.4 % (0.0-2.0); HEMATOCRIT 36.8 % (39.0-51.0); HEMO FLAGS DIFF FINAL; LYMPH % 0.7 % (9.0-44.0); LYMPHOCYTE # 0.2 TH/MM3 (1.0-4.8); MEAN CELL VOLUME 86.3 FL (80.0-100.0); MEAN CORPUSCULAR HEMOGLOBIN 27.6 PG (27.0-34.0); MONO % 4.3 % (0.0-8.0); NEUT % 94.6 % (16.0-70.0); PLATELET COUNT 342 TH/MM3 (150-450); RED BLOOD COUNT 4.26 MIL/MM3 (4.50-5.90); RED CELL DISTRIBUTION WIDTH 14.9 % (11.6-17.2); WHITE BLOOD COUNT 28.5 TH/MM3 (4.0-11.0)
[2016-07-08] MEDS ORDERED: CEFEPIME INJ 2,000 MG in SODIUM CHLORIDE 0.9% INJ 100 ML IV STA (13:05)
[2016-07-08] MEDS ORDERED: AZITHROMYCIN INJ 500 MG in SODIUM CHLOR 0.9% 250 ML INJ 250 ML IV STA (13:05)
[2016-07-08 13:10] LABS: APTT (PATIENT) 25.2 SEC (24.3-30.1); INTERNATIONAL NORMALIZED RATIO 1.1 RATIO; PROTHROMBIN TIME - PATIENT 11.7 SEC (9.8-11.6)
--- NOTE | 2016-07-08 13:12 | PD ---
HPI Chief Complaint: Altered Mental Status Time Seen by Provider: 12:30 Travel History International Travel<30 days: No Contact w/Intl Traveler<30days: No Traveled to known affect area: No History of Present Illness HPI Patient is a 85-year-old male who was sent by the assisted living facility for altered mental status. Patient has an indwelling urinary catheter secondary to urinary obstruction, he was recently treated for a urinary tract infection. He has been on Levaquin for this. Patient's past medical history includes hypertension, TIA, dementia, urinary obstruction. PFSH Past Medical History Hx Anticoagulant Therapy: No Arthritis: Yes Asthma: No Autoimmune Disease: No Anxiety: No Depression: Yes Heart Rhythm Problems: Yes Cancer: No Cardiovascular Problems: Yes (PACEMAKER) High Cholesterol: No Chemotherapy: No Chest Pain: No Congestive Heart Failure: No COPD: No Cerebrovascular Accident: No Diabetes: No Diminished Hearing: No Endocrine: No Gastrointestinal Disorders: Yes (ulcer bleeding) GERD: No Genitourinary: No Hiatal Hernia: No Immune Disorder: No Kidney Stones: No Musculoskeletal: No Neurologic: Yes (head injury, encephalopathy, memory deficit, L foot drop, ataxia) Psychiatric: Yes Reproductive: No Respiratory: No Migraines: No Radiation Therapy: No Renal Failure: No Seizures: No Sickle Cell Disease: No Sleep Apnea: No Thyroid Disease: No Ulcer: Yes Past Surgical History Abdominal Surgery: Yes (BLEEDING ULCER) AICD: No Arteriovenous Shunt: No Body Medical Devices: rib fracture fixation device Cardiac Surgery: Yes (PACE MAKER) Ear Surgery: No Endocrine Surgery: No Eye Surgery: Yes (cataracts) Genitourinary Surgery: No Gynecologic Surgery: No Hysterectomy: No Insulin Pump: No Joint Replacement: No Oral Surgery: No Pacemaker: Yes Thoracic Surgery: No Other Surgery: Yes Social History Alcohol Use: No Tobacco Use: No Substance Use: No Allergies-Medications (Allergen,Severity, Reaction): Coded Allergies: Neosporin (Verified Allergy, Mild, rash, 07/08/16) per son Penicillin (Verified Adverse Reaction, Intermediate, rash , 07/08/16) Reported Meds & Prescriptions Reported Meds & Active Scripts Active Levaquin (Levofloxacin) 750 Mg Tab 750 Mg PO DAILY Ultram (Tramadol HCl) 50 Mg Tab 50 Mg PO BID PRN 3 Days Flomax (Tamsulosin HCl) 0.4 Mg Cap 0.4 Mg PO HS 30 Days Midodrine 5 Mg Tab 5 Mg PO TID 30 Days Namenda (Memantine) 10 Mg Tab 10 Mg PO BID 30 Days Escitalopram (Escitalopram Oxalate) 10 Mg Tab 10 Mg PO DAILY 30 Days Plavix (Clopidogrel Bisulfate) 75 Mg Tab 75 Mg PO DAILY 30 Days Reported Dulcolax Supp (Bisacodyl) 10 Mg Supp 10 Mg RECTAL HS PRN Mapap (Acetaminophen) 325 Mg Tab 650 Mg PO Q4HR PRN Milk of Magnesia Liq (Magnesium Hydroxide) 400 Mg/5 Ml Susp 30 Ml PO HS PRN Aricept (Donepezil) 10 Mg Tab 10 Mg PO DAILY Thera/Beta-Carotene (Multiple Vitamin) 1 Tab Tab 1 Tab PO DAILY Review of Systems ROS Limitations: Altered Mental Status, Poor Historian Except as stated in HPI: all other systems reviewed are Neg Physical Exam Narrative GENERAL: Well-developed, elderly, male. Resting comfortably in no acute distress. SKIN: Warm and dry. HEAD: Atraumatic. Normocephalic. EYES: Pupils equal and round. No scleral icterus. No injection or drainage. ENT: No nasal bleeding or discharge. Mucous membranes pink and moist. NECK: Trachea midline. No JVD. CARDIOVASCULAR: Regular rate and rhythm. No murmur appreciated. RESPIRATORY: No accessory muscle use. Diminished breath sounds. GASTROINTESTINAL: Abdomen soft, non-tender, nondistended. Hepatic and splenic margins not palpable. MUSCULOSKELETAL: No obvious deformities. No clubbing. No cyanosis. No edema. GENITOURINARY: Circumcised. Testes descended bilaterally without evidence of rotation. No lesions or erythema. Indwelling urinary catheter with milky, brown urine. NEUROLOGICAL: Drowsy, response to sternal rub. No obvious cranial nerve deficits. Motor grossly within normal limits. Data Data Last Documented VS Vital Signs Date Time Temp Pulse Resp B/P Pulse Ox O2 Delivery O2 Flow Rate FiO2 07/08/16 12:09 100.9 86 16 96/54 91 Room Air Orders Electrocardiogram (07/08/16 12:22) Complete Blood Count With Diff (07/08/16 12:22) Comprehensive Metabolic Panel (07/08/16 12:22) Prothrombin Time / Inr (Pt) (07/08/16 12:22) Act Partial Throm Time (Ptt) (07/08/16 12:22) Lactic Acid Sepsis Protocol (07/08/16 12:22) Magnesium (Mg) (07/08/16 12:22) Troponin I (07/08/16 12:22) Urinalysis - C+S If Indicated (07/08/16 12:22) Blood Culture (07/08/16 12:22) Chest, Single Ap (07/08/16 12:22) Arterial Blood Gas (Abg) (07/08/16 12:22) Blood Glucose (07/08/16 12:22) Ecg Monitoring (07/08/16 12:22) Iv Access Insert/Monitor (07/08/16 12:22) Oximetry (07/08/16 12:22) Oxygen Administration (07/08/16 12:22) Urinary Catheter Insert/Apply (07/08/16 12:22) Sodium Chlor 0.9% 1000 Ml Inj (Ns 1000 M (07/08/16 12:30) Acetaminophen Supp (Tylenol Supp) (07/08/16 12:30) Vancomycin Inj (Vancomycin Inj) (07/08/16 12:29) Cefepime Inj (Maxipime Inj) (07/08/16 13:05) Azithromycin Inj (Zithromax Inj) (07/08/16 13:05) Labs Laboratory Tests Test 07/08/16 12:45 White Blood Count 28.5 TH/MM3 Red Blood Count 4.26 MIL/MM3 Hemoglobin 11.8 GM/DL Hematocrit 36.8 % Mean Corpuscular Volume 86.3 FL Mean Corpuscular Hemoglobin 27.6 PG Mean Corpuscular Hemoglobin 32.0 % Concent Red Cell Distribution Width 14.9 % Platelet Count 342 TH/MM3 Mean Platelet Volume 8.4 FL Neutrophils (%) (Auto) 94.6 % Lymphocytes (%) (Auto) 0.7 % Monocytes (%) (Auto) 4.3 % Eosinophils (%) (Auto) 0.0 % Basophils (%) (Auto) 0.4 % Neutrophils # (Auto) 26.9 TH/MM3 Lymphocytes # (Auto) 0.2 TH/MM3 Monocytes # (Auto) 1.2 TH/MM3 Eosinophils # (Auto) 0.0 TH/MM3 Basophils # (Auto) 0.1 TH/MM3 CBC Comment DIFF FINAL Differential Comment Prothrombin Time 11.7 SEC Prothromb Time International 1.1 RATIO Ratio Activated Partial 25.2 SEC Thromboplast Time MDM Medical Decision Making Medical Screen Exam Complete: Yes Emergency Medical Condition: Yes Interpretation(s) Vital Signs Date Time Temp Pulse Resp B/P Pulse Ox O2 Delivery O2 Flow Rate FiO2 07/08/16 12:09 100.9 86 16 96/54 91 Room Air 07/08/16 12:00 100.9 86 16 96/54 91 Differential Diagnosis UTI versus sepsis versus Sirs versus renal failure versus electrolyte abnormality versus meningitis versus other Narrative Course Patient is a 85-year-old male who was initially seen in the ambulance garcia, patient meets sepsis criteria based on his blood pressure and his temperature. Sepsis orders placed. Labs, imaging ordered and pending. Urinary catheter was removed and replaced. Urinalysis was sent. Patient was moved to 2, care of patient was transferred to Dr. De La Garza. Naima Blankenship Jul 08, 2016 13:12
[2016-07-08 13:17] LABS: BLOOD GAS BASE EXCESS -0.2 mmol/L (-2-2); BLOOD GAS CARBOXYHEMOGLOBIN 2.3 % (0-4); BLOOD GAS HCO3 24 mmol/L (22-26); BLOOD GAS METHEMOGLOBIN 1.7 % (0-2); BLOOD GAS O2 HGB SATURATION 93 % (90-100); BLOOD GAS OXYGEN CONTENT 14.9 Vol % (12.0-20.0); BLOOD GAS PCO2 37 mmHg (38-42); BLOOD GAS PO2 74 mmHG (61-120); BLOOD GAS TOTAL HGB 11.4 G/DL (12.0-16.0); CRITICAL VALUE NO; TEMP CORR TO 98.6
[2016-07-08 13:18] LABS: DRAW SITE LT RADIAL; LITER FLOW 2 L/M; NUMBER OF ARTERIAL PUNCTURES 1; OXYGEN DEVICE NASAL CANNULA; STAT YES; ULNAR PULSE PRESENT
[2016-07-08 13:22] LABS: ANION GAP 8 MEQ/L (5-15); AST (GOT) 15 U/L (15-37); BICARBONATE 27.7 MEQ/L (21.0-32.0); BLOOD UREA NITROGEN 23 MG/DL (7-18); CHLORIDE 108 MEQ/L (98-107); GLOMERULAR FILTRATION RATE 46 ML/MIN (>89); MAGNESIUM 2.1 MG/DL (1.5-2.5); POTASSIUM 3.5 MEQ/L (3.5-5.1); SODIUM (NA) 144 MEQ/L (136-145)
[2016-07-08 13:27] LABS: ALKALINE PHOSPHATASE 90 U/L (45-117); ALT (GPT) 27 U/L (12-78); TOTAL BILIRUBIN ADULT 0.6 MG/DL (0.2-1.0)
[2016-07-08 13:32] VITALS: O2SAT 96
[2016-07-08] MEDS ORDERED: THERTAB27 PO (13:42)
[2016-07-08] MEDS ORDERED: LEVA500T PO (13:42)
--- NOTE | 2016-07-08 13:47 | RADRPT ---
EXAM DATE/TIME: 07/08/2016 13:23 [facility] COMPARISON: CHEST SINGLE AP, June 29, 2016, 21:48. INDICATIONS: Short of breath. MEDICAL HISTORY: None. SURGICAL HISTORY: Pacemaker. ENCOUNTER: Initial ACUITY: 1 day PAIN SCORE: Non-responsive. LOCATION: Bilateral chest FINDINGS: Pacemaker is implanted in the left chest. Heart and pulmonary vascularity are normal. Degenerative changes seen about both shoulders. Surgical clips are seen on the right ribs. CONCLUSION: Pacemaker, otherwise negative. Ryan Putnam MD FACR on July 08, 2016 at 13:39 Board Certified Radiologist. This report was verified electronically.
[2016-07-08 14:00] LABS: BACTERIA, URINE MANY /hpf; BLOOD, URINE MOD (NEG); GLUCOSE,URINE NEG (NEG); KETONE, URINE NEG (NEG); MUCUS URINE FEW /lpf (OCC); TRANSITIONAL EPI CELLS, URINE 1 /hpf; URINE COLOR YELLOW (YELLW/STRAW)
[2016-07-08 14:02] LABS: COMMENT (UR) CATH-CULTURE IND; CULTURE IF INDICATED CATH CULTURE IND; NITRITE,URINE POS (NEG)
--- NOTE | 2016-07-08 15:02 | PD ---
Physical Exam Date Seen by Provider: Jul 08, 2016 Time Seen by Provider: 13:30 Narrative I, Dr. De La Garza, have reviewed the advance practice practitioner's documentation and am in agreement, met with the patient face to face, made the diagnosis, and the medical decision making was done by me. *My assessment and Findings: Patient seen and evaluated with PA, lab work and workup initiated. IV antibiotics were placed for patient after cultures are drawn. Symptoms are indicative of underlying sepsis. Lab work indicates a UTI. On exam, patient is alert, awake, and able to converse. Vital signs show hypotension and IV fluids were given in the ER. At this point, my plan would be to admit the patient for further treatment. The case was discussed with family practice resident service for admission. Data Data Last Documented VS Vital Signs Date Time Temp Pulse Resp B/P Pulse Ox O2 Delivery O2 Flow Rate FiO2 07/08/16 13:32 96 Room Air 07/08/16 12:09 100.9 86 16 96/54 Orders Electrocardiogram (07/08/16 12:22) Complete Blood Count With Diff (07/08/16 12:22) Comprehensive Metabolic Panel (07/08/16 12:22) Prothrombin Time / Inr (Pt) (07/08/16 12:22) Act Partial Throm Time (Ptt) (07/08/16 12:22) Lactic Acid Sepsis Protocol (07/08/16 12:22) Magnesium (Mg) (07/08/16 12:22) Troponin I (07/08/16 12:22) Urinalysis - C+S If Indicated (07/08/16 12:22) Blood Culture (07/08/16 12:22) Chest, Single Ap (07/08/16 12:22) Arterial Blood Gas (Abg) (07/08/16 12:22) Blood Glucose (07/08/16 12:22) Ecg Monitoring (07/08/16 12:22) Iv Access Insert/Monitor (07/08/16 12:22) Oximetry (07/08/16 12:22) Oxygen Administration (07/08/16 12:22) Urinary Catheter Insert/Apply (07/08/16 12:22) Sodium Chlor 0.9% 1000 Ml Inj (Ns 1000 M (07/08/16 12:30) Acetaminophen Supp (Tylenol Supp) (07/08/16 12:30) Vancomycin Inj (Vancomycin Inj) (07/08/16 12:29) Cefepime Inj (Maxipime Inj) (07/08/16 13:05) Azithromycin Inj (Zithromax Inj) (07/08/16 13:05) Urine Culture (07/08/16 12:48) Labs Laboratory Tests Test 07/08/16 07/08/16 07/08/16 12:45 12:48 13:08 White Blood Count 28.5 TH/MM3 Red Blood Count 4.26 MIL/MM3 Hemoglobin 11.8 GM/DL Hematocrit 36.8 % Mean Corpuscular Volume 86.3 FL Mean Corpuscular Hemoglobin 27.6 PG Mean Corpuscular Hemoglobin 32.0 % Concent Red Cell Distribution Width 14.9 % Platelet Count 342 TH/MM3 Mean Platelet Volume 8.4 FL Neutrophils (%) (Auto) 94.6 % Lymphocytes (%) (Auto) 0.7 % Monocytes (%) (Auto) 4.3 % Eosinophils (%) (Auto) 0.0 % Basophils (%) (Auto) 0.4 % Neutrophils # (Auto) 26.9 TH/MM3 Lymphocytes # (Auto) 0.2 TH/MM3 Monocytes # (Auto) 1.2 TH/MM3 Eosinophils # (Auto) 0.0 TH/MM3 Basophils # (Auto) 0.1 TH/MM3 CBC Comment DIFF FINAL Differential Comment Prothrombin Time 11.7 SEC Prothromb Time International 1.1 RATIO Ratio Activated Partial 25.2 SEC Thromboplast Time Sodium Level 144 MEQ/L Potassium Level 3.5 MEQ/L Chloride Level 108 MEQ/L Carbon Dioxide Level 27.7 MEQ/L Anion Gap 8 MEQ/L Blood Urea Nitrogen 23 MG/DL Creatinine 1.45 MG/DL Estimat Glomerular Filtration 46 ML/MIN Rate Random Glucose 111 MG/DL Lactic Acid Level 1.4 mmol/L Calcium Level 8.2 MG/DL Magnesium Level 2.1 MG/DL Total Bilirubin 0.6 MG/DL Aspartate Amino Transf 15 U/L (AST/SGOT) Alanine Aminotransferase 27 U/L (ALT/SGPT) Alkaline Phosphatase 90 U/L Troponin I 0.05 NG/ML Total Protein 6.1 GM/DL Albumin 2.6 GM/DL Urine Color YELLOW Urine Turbidity HAZY Urine pH 6.0 Urine Specific [place] 1.020 Urine Protein 100 mg/dL Urine Glucose (UA) NEG mg/dL Urine Ketones NEG mg/dL Urine Occult Blood MOD Urine Nitrite POS Urine Bilirubin NEG Urine Urobilinogen LESS THAN 2.0 MG/DL Urine Leukocyte Esterase LARGE Urine RBC 121 /hpf Urine WBC /hpf Urine WBC Clumps MANY Urine Transitional Epithelial 1 /hpf Cells Urine Bacteria MANY /hpf Urine Mucus FEW /lpf Microscopic Urinalysis Comment CATH-CULTURE IND Blood Gas Puncture Site LT RADIAL Blood Gas Patient Temperature 98.6 Blood Gas HCO3 24 mmol/L Blood Gas Base Excess -0.2 mmol/L Blood Gas Oxygen Saturation 93 % Arterial Blood pH 7.43 Arterial Blood Partial 37 mmHg Pressure CO2 Arterial Blood Partial 74 mmHG Pressure O2 Arterial Blood Oxygen Content 14.9 Vol % Arterial Blood 2.3 % Carboxyhemoglobin Arterial Blood Methemoglobin 1.7 % Blood Gas Hemoglobin 11.4 G/DL Oxygen Delivery Device NASAL CANNULA Blood Gas Liter Flow 2 L/M MDM Medical Record Reviewed: Yes Supervised Visit with TONY: Yes Sepsis Criteria SIRS Criteria (2 or more): Temp > 100.9 or < 96.8, WBC > 40863, < 4000 or > 10 % bands Sepsis Criteria (SIRS+source): Infect source susp/known Severe Sepsis (+one): Hypotension Criteria Outcome: Meets severe sepsis criteria Diagnosis Primary Impression: UTI (urinary tract infection) Additional Impression: SEVERE SEPSIS WITHOUT SEPTIC SHOCK Admitting Information Admitting Physician Requests: it Miguel De La Garza MD Jul 08, 2016 15:02
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
[2016-07-08 15:20] VITALS: BP 111/62; PULSE 71; RESP 19; O2SAT 100
[2016-07-08] MEDS ORDERED: ONDANSETRON HCL 4 MG/2 ML VIAL IVP PRN (15:45)
[2016-07-08] MEDS ORDERED: ACETAMINOPHEN 325 MG TAB PO PRN (15:45)
[2016-07-08] MEDS ORDERED: NALOXONE HCL 0.4 MG/ML AMP IV PRN (15:45)
[2016-07-08] MEDS ORDERED: SODIUM CHLORIDE 0.9% FLUSH 5 ML FLUSH FLUSH PRN (15:45)
[2016-07-08] MEDS ORDERED: traMADol HCL 50 MG TAB PO PRN (15:45)
[2016-07-08] MEDS: SODIUM CHLOR 0.9% 1000 ML INJ 1,000 ML IV SCH ×2 (16:22→20:43)
[2016-07-08] MEDS: TAMSULOSIN HCL 0.4 MG CAP PO SCH (20:43)
[2016-07-08] MEDS: SODIUM CHLORIDE 0.9% FLUSH 5 ML FLUSH FLUSH SCH (20:43)
[2016-07-08] MEDS: MEMANTINE HCL 10 MG TAB PO SCH (20:44)
[2016-07-08] MEDS: PIPERACIL-TAZO 4.5 GM PREMIX 100 ML IV SCH (20:44)
[2016-07-08 21:35] VITALS: PULSE 69
[2016-07-08 22:13] VITALS: BP 119/70; PULSE 75; RESP 18; TEMP 98.3; O2SAT 95
[2016-07-09] VITALS (7 sets, daily range): BP systolic 98–147; BP diastolic 53–89; PULSE 64–74; RESP 18–20; TEMP 97.3–99.2; O2SAT 93–97
[2016-07-09] MEDS: PIPERACIL-TAZO 4.5 GM PREMIX 100 ML IV SCH (03:07)
[2016-07-09] MEDS: CEFEPIME INJ 2,000 MG in SODIUM CHLORIDE 0.9% INJ 100 ML IV SCH ×2 (04:38→16:38)
[2016-07-09 06:15] LABS: AUTOMATED NEUTROPHIL # 14.4 TH/MM3 (1.8-7.7); BASOPHIL # 0.1 TH/MM3 (0-0.2); BASOPHIL % 0.6 % (0.0-2.0); EOSINOPHIL # 0.4 TH/MM3 (0-0.4); EOSINOPHIL % 2.7 % (0.0-4.0); HEMATOCRIT 32.3 % (39.0-51.0); HEMO FLAGS DIFF FINAL; LYMPH % 4.5 % (9.0-44.0); LYMPHOCYTE # 0.7 TH/MM3 (1.0-4.8); MEAN CELL VOLUME 86.3 FL (80.0-100.0); MEAN CORPUSCULAR HGB CONC 32.5 % (32.0-36.0); MONO % 4.5 % (0.0-8.0); NEUT % 87.7 % (16.0-70.0); PLATELET COUNT 292 TH/MM3 (150-450); RED BLOOD COUNT 3.74 MIL/MM3 (4.50-5.90); RED CELL DISTRIBUTION WIDTH 15.4 % (11.6-17.2); WHITE BLOOD COUNT 16.4 TH/MM3 (4.0-11.0)
[2016-07-09] MEDS ORDERED: Vancomycin Consult Pharmacy 1 EA XX SCH (06:45)
[2016-07-09 06:46] LABS: ALKALINE PHOSPHATASE 74 U/L (45-117); ALT (GPT) 21 U/L (12-78); ANION GAP 8 MEQ/L (5-15); AST (GOT) 17 U/L (15-37); BICARBONATE 24.6 MEQ/L (21.0-32.0); BLOOD UREA NITROGEN 17 MG/DL (7-18); CHLORIDE 116 MEQ/L (98-107); GLOMERULAR FILTRATION RATE 59 ML/MIN (>89); POTASSIUM 3.5 MEQ/L (3.5-5.1); SODIUM (NA) 149 MEQ/L (136-145); TOTAL BILIRUBIN ADULT 0.6 MG/DL (0.2-1.0)
[2016-07-09] MEDS ORDERED: VANCOMYCIN INJ 1,300 MG in SODIUM CHLORID 0.9% 500 ML INJ 500 ML IV SCH (08:00)
[2016-07-09] MEDS: DONEPEZIL HCL 5 MG TAB PO SCH (08:54)
[2016-07-09] MEDS: CLOPIDOGREL 75 MG TAB PO SCH (08:54)
[2016-07-09] MEDS: MEMANTINE HCL 10 MG TAB PO SCH ×2 (08:54→20:06)
[2016-07-09] MEDS: ESCITALOPRAM OXALATE 10 MG TAB PO SCH (08:54)
[2016-07-09] MEDS: MIDODRINE 5 MG TAB PO SCH ×2 (08:54→13:24)
[2016-07-09] MEDS: SODIUM CHLORIDE 0.9% FLUSH 5 ML FLUSH FLUSH SCH ×2 (08:55→20:06)
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
[2016-07-09] MEDS ORDERED: VANCOMYCIN INJ 1,000 MG in SODIUM CHLOR 0.9% 250 ML INJ 250 ML IV ONE (15:00)
[2016-07-09] MEDS: ENOXAPARIN SODIUM 30 MG/0.3 ML SYRINGE SQ SCH (16:38)
[2016-07-09] MEDS: TAMSULOSIN HCL 0.4 MG CAP PO SCH (20:06)
[2016-07-09] MEDS: SODIUM CHLOR 0.9% 1000 ML INJ 1,000 ML IV SCH (20:06)
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
--- NOTE | 2016-07-09 21:19 | EKG ---
Date Performed: 07/08/2016 Time Performed: 13:28:40 PTAGE: 85 years EKG: ELECTRONIC VENTRICULAR PACEMAKER ABNORMAL RHYTHM ECG NO PREVIOUS TRACING DOCTOR: Marino Burns Interpretating Date/Time 07/09/2016 21:10:00
[2016-07-10] VITALS (9 sets, daily range): BP systolic 145–164; BP diastolic 78–88; PULSE 64–88; RESP 18–20; TEMP 97.6–99.4; O2SAT 93–100
[2016-07-10] MEDS ORDERED: VANCOMYCIN INJ 1,250 MG in SODIUM CHLOR 0.9% 250 ML INJ 250 ML IV SCH (04:00)
[2016-07-10] MEDS: SODIUM CHLOR 0.9% 1000 ML INJ 1,000 ML IV SCH ×2 (04:14→20:16)
[2016-07-10] MEDS: CEFEPIME INJ 2,000 MG in SODIUM CHLORIDE 0.9% INJ 100 ML IV SCH ×2 (04:16→16:35)
[2016-07-10 07:05] LABS: AUTOMATED NEUTROPHIL # 7.1 TH/MM3 (1.8-7.7); BASOPHIL # 0.1 TH/MM3 (0-0.2); BASOPHIL % 1.1 % (0.0-2.0); EOSINOPHIL # 0.7 TH/MM3 (0-0.4); EOSINOPHIL % 7.6 % (0.0-4.0); HEMATOCRIT 31.7 % (39.0-51.0); HEMO FLAGS DIFF FINAL; LYMPH % 10.4 % (9.0-44.0); MEAN CELL VOLUME 85.2 FL (80.0-100.0); MEAN CORPUSCULAR HEMOGLOBIN 28.3 PG (27.0-34.0); MEAN CORPUSCULAR HGB CONC 33.2 % (32.0-36.0); MONO % 7.7 % (0.0-8.0); NEUT % 73.2 % (16.0-70.0); PLATELET COUNT 279 TH/MM3 (150-450); RED BLOOD COUNT 3.72 MIL/MM3 (4.50-5.90); RED CELL DISTRIBUTION WIDTH 15.1 % (11.6-17.2); WHITE BLOOD COUNT 9.7 TH/MM3 (4.0-11.0)
[2016-07-10 07:08] LABS: BICARBONATE 24.9 MEQ/L (21.0-32.0); POTASSIUM 3.4 MEQ/L (3.5-5.1)
[2016-07-10] MEDS ORDERED: POTASSIUM CHLORIDE 20 MEQ CONTROLLED RELEASE TAB PO ONE (07:30)
[2016-07-10] MEDS: MIDODRINE 5 MG TAB PO SCH ×3 (09:00→19:02)
[2016-07-10] MEDS: ESCITALOPRAM OXALATE 10 MG TAB PO SCH (09:05)
[2016-07-10] MEDS: MEMANTINE HCL 10 MG TAB PO SCH ×2 (09:05→20:16)
[2016-07-10] MEDS: DONEPEZIL HCL 5 MG TAB PO SCH (09:05)
[2016-07-10] MEDS: CLOPIDOGREL 75 MG TAB PO SCH (09:06)
[2016-07-10] MEDS: SODIUM CHLORIDE 0.9% FLUSH 5 ML FLUSH FLUSH SCH ×2 (09:06→20:16)
--- NOTE | 2016-07-10 10:38 | HHI.FPPN ---
Subjective Remarks Overnight, MARKUS. AFVSS. Breathing well on RA. Eating, voiding without difficulty. Stool is loose- holding laxatives. OOB with assistance secondary to L tibia fracture. No acute complaints. Appears oriented to his baseline. Remembered he had broken leg, unable to remember admission for UTI 1 minute after being told about it. Not agitated. Denies CP, SOB, or leg pain. No family in bedside this AM (Ruth Casey MD R1) Objective Vitals Vital Signs Date Time Temp Pulse Resp B/P Pulse Ox O2 Delivery O2 Flow Rate FiO2 07/10/16 08:08 98.4 69 18 147/80 96 07/10/16 04:00 97.6 64 20 145/83 95 07/10/16 00:15 99.4 88 20 145/88 94 07/09/16 20:09 Room Air 07/09/16 20:00 98.7 70 20 126/68 94 07/09/16 16:00 99.2 74 18 147/89 94 07/09/16 13:00 96 Room Air 07/09/16 12:00 98.3 74 18 117/70 93 I/O 07/09/16 07/09/16 07/09/16 07/10/16 07/10/16 07/10/16 07:00 15:00 23:00 07:00 15:00 23:00 Intake Total 120 ml 240 ml 360 ml 1191 ml Output Total 200 ml 400 ml 425 ml 850 ml Balance -80 ml -160 ml -65 ml 341 ml Intake Oral 120 ml 240 ml 360 ml 240 ml IV Total 951 ml Output Urine Total 200 ml 400 ml 425 ml 850 ml # Bowel Movements 0 1 0 (Ruth Casey MD R1) Result Diagram: 07/10/16 0540 07/10/16 0540 Imaging Last Impressions Chest X-Ray 07/08/16 1222 Signed Impressions: Service Date/Time: Friday, July 08, 2016 13:23 - CONCLUSION: Pacemaker , otherwise negative. Ryan Putnam MD FACR Objective Remarks CONST: Elderly male in NAD. Appears at baseline- carry on simple conversation, remembers broken L leg, unable to remember UTI DERM: Numerous bruises in various stages of healing on arms bilaterally. Skin warm and dry HEENNT: PERRL. MMM CV: RRR. No murmurs or gallops. RESP: Anterior lugns CTAB. No wheezing GI: Soft, NTND. +BS. : Locke in place MSK: LLE below knee in rigid brace. L foot drop visible at rest. NEURO: Known Advanced AD. Carry on a simple coversation. Resting tremor UE, head noted. (Ruth Casey MD R1) Urinary Catheter: Yes Date of Insertion: Jul 08, 2016 (Ruth Casey MD R1) Vascular Central Line Catheter: No (Ruth Casey MD R1) A/P Assessment and Plan 85y male with dementia and hx of obstructive uropathy with indwelling Locke hospitalized 07/08/15 for urosepsis Discharge Planning 4+ days, anticipate Thursday 07/13 at earliest, allowing for at least 5 days IV abx. PT rec D/C SNF (came from [facility]). Has all DME Son: [facility] [phone] 07/10- Called son's cell. He will be here later today. Plan to meet at 11am to briefly update on care plan. DW: Dr Rudd, Dr. Torres (Ruth Casey MD R1) Attending Attestation Patient seen and examined. Case reviewed and discussed with the resident team. Agree with plan of care as discussed with me and documented in the resident note. (Juan Carlos Egan MD) Problem List: (1) Sepsis secondary to UTI Status: Acute Plan: History of urinary retention, secondary to obstructive uropathy and dementia. Has indwelling Locke. Recently hospitalized 06/29-07/01/16 for E. coli, Klebsiella, E. faecalis urosepsis and CINDI. Met sepsis criteria on admission ( febrile 100.9F. Leukocytosis 28k, UTI). Adverse reaction of "rash" to PCN noted - received cefepime and zosyn in ED without difficulty, will continue to use/ monitor. Urine cx (07/07): E.Coli, sensitivies reviewed Plan -Consult Urology Re: advice with management of repeated urosepsis. Suprapubic catheter vs prostatectomy vs other Recommend outpatient cystoscopy and urodynamic studies as outpatient As pt likely to stay 3+ days for IV abx, will touch base with urology about consideration completing completing these inpatient -Continue targeted IV antibiotic therapy. Continue cefepime (07/08- ) Completed vanc (07/08-07/09) -Follow cultures -Blood cultures (07/08) x2 NG1D -Urine cultures (07/08) pending- s/p Levaquin x1- Gram neg domitila -Supportive care -Daily CBCs -1/2MIVF (2) Urinary retention Status: Chronic Plan: Difficult problem- with dementia, chronic indwelling Locke catheter treatment will pose problems with him pulling/removing catheter and high chance of further UTI with more resistant organisms. However, intermittent catheterization also problematic with his dementia and lack of ability to self catheterize. Has failed a reasonable trial of voiding. Plan Urology consulted- will discuss these options more as part of outpatient workup Continue tamsulosin 0.4mg HS daily (3) Alzheimer disease Status: Chronic Plan: -Continue memantine 10mg BID -Continue Aricept 10mg daily -Continue escitalopram 10mg daily (4) Tibial plateau fracture, left Status: Acute Plan: Hospitalized and transitioned to [email or web address] Jun, 2016 for progressive dementia, multiple falls and tibial plateau fx. Had follow up with orthopedics planned, will be cancelled due to hospitalization -Continue home tramadol 50mg TID PRN pain (5) Orthostatic hypotension Status: Chronic Plan: -Continue midodrine 5mg TID (6) Cerebrovascular disease Status: Chronic Plan: -Continue Plavix (7) CINDI (acute kidney injury) Status: Acute Plan: Cr 1.1 on discharge from hospital. Cr 1.4 on re-admission. As of 07/10- resolved (Cr 1.12) -Decrease IVF to 1/2maintenance -Avoid nephrotoxic agents -Renally dose medications, including Lovenox (8) Altered mental status Status: Resolved Plan: Resolved as of 07/10/16. At baseline, recognizes son. We will forget his is since March 2016, but with prompting, remembers her passing. On admission, was more agitated and forgetful than baseline. CXR 07/08- wnl. -Avoid BZD, opioids, TCA, restraints, and other medications that may aggravate delirium/AMS -Daily BMP, continue to monitor (9) FEN/PPX Status: Acute Plan: -Fluids: Decrease fluids to 1/2MIVF NS@60mL/hr -Electrolytes: monitor and replete, wnl on admission -Nutrition: Regular diet -DVT ppx: Increase Lovenox from renal dosing to full 40mg SQ daily -GI ppx: not indicated (Ruth Casey MD R1) Problem Qualifiers (1) Alzheimer disease: Qualified Code: G30.9 - Alzheimer's dementia without behavioral disturbance, unspecified timing of dementia onset (2) Tibial plateau fracture, left: Qualified Code: S82.142S - Tibial plateau fracture, left, sequela (3) Altered mental status: Qualified Code: R40.4 - Transient alteration of awareness Ruth Casey MD R1 Jul 10, 2016 10:38 Juan Carlos Egan MD Jul 12, 2016 11:47
[2016-07-10] MEDS: ENOXAPARIN SODIUM 30 MG/0.3 ML SYRINGE SQ SCH (16:35)
[2016-07-10] MEDS: TAMSULOSIN HCL 0.4 MG CAP PO SCH (20:16)
[2016-07-10] MEDS ORDERED: PHARMACY ORDERED LAB XX ONE (21:45)
[2016-07-11] VITALS (7 sets, daily range): BP systolic 138–162; BP diastolic 77–94; PULSE 61–88; RESP 17–20; TEMP 97.7–99.1; O2SAT 93–95
[2016-07-11] MEDS: CEFEPIME INJ 2,000 MG in SODIUM CHLORIDE 0.9% INJ 100 ML IV SCH ×2 (03:55→16:00)
[2016-07-11] MEDS: SODIUM CHLORIDE 0.9% FLUSH 5 ML FLUSH FLUSH SCH ×2 (09:00→20:25)
[2016-07-11] MEDS: MIDODRINE 5 MG TAB PO SCH ×3 (09:00→17:36)
--- NOTE | 2016-07-11 09:05 | HHI.FPPN ---
Subjective Remarks No acute issues overnight. Vitals are stable, patient remains afebrile. He is feeling back to his baseline today. He denies any chest pain, shortness of breath, fever, chills, nausea or vomiting. He is tolerating by mouth. He has had 2675 mL output and regular bowel movements. (Naina Rogers MD R2) Objective Vitals Vital Signs Date Time Temp Pulse Resp B/P Pulse Ox O2 Delivery O2 Flow Rate FiO2 07/11/16 04:00 97.7 64 20 148/81 95 07/11/16 00:00 97.8 61 20 157/83 95 07/10/16 21:02 Room Air 07/10/16 20:12 67 07/10/16 20:04 100 21 07/10/16 20:00 98.2 69 20 152/78 97 07/10/16 18:46 Room Air 07/10/16 16:08 98.5 78 18 164/88 95 07/10/16 12:08 98.4 68 18 160/86 94 07/10/16 09:43 93 21 I/O 07/10/16 07/10/16 07/10/16 07/11/16 07/11/16 07/11/16 07:00 15:00 23:00 07:00 15:00 23:00 Intake Total 1191 ml 880 ml 822 ml 754 ml Output Total 850 ml 600 ml 550 ml 1525 ml Balance 341 ml 280 ml 272 ml -771 ml Intake Oral 240 ml 480 ml 360 ml 240 ml IV Total 951 ml 400 ml 462 ml 514 ml Output Urine Total 850 ml 600 ml 550 ml 1525 ml # Bowel Movements 0 0 0 1 (Naina Rogers MD R2) Result Diagram: 07/10/16 0540 07/10/16 0540 Imaging Last Impressions Chest X-Ray 07/08/16 1222 Signed Impressions: Service Date/Time: Friday, July 08, 2016 13:23 - CONCLUSION: Pacemaker , otherwise negative. Ryan Putnam MD FACR Objective Remarks CONST: Elderly male, sitting up in bed, in NAD. DERM: Numerous bruises in various stages of healing on arms bilaterally. Skin warm and dry. HEENNT: PERRL. MMM CV: RRR. No murmurs or gallops. RESP: Anterior lungs CTAB. No wheezing GI: Soft, NTND. +BS. : Locke in place, draining clear yellow urine. MSK: LLE below knee in rigid brace. L foot drop visible at rest. NEURO: Known Advanced AD. (Naina Rogers MD R2) Date of Insertion: Jul 08, 2016 (Naina Rogers MD R2) A/P Assessment and Plan 85yo male with a past medical history significant for dementia and obstructive uropathy with indwelling Locke hospitalized 07/08/15 for urosepsis. Discharge Planning Anticipate discharge on Thursday 07/13, allowing for at least 5 days IV abx. PT rec D/C SNF (came from [facility]). Has all DME Son: Mr. Duglas Zhou [phone] Egan (Naina Rogers MD R2) Attending Attestation Case reviewed and discussed with the resident team. Agree with plan of care as discussed with me and documented in the resident note. (Juan Carlos Egan MD) Problem List: (1) Sepsis secondary to UTI Status: Acute Plan: Sepsis resolved, UTI improving. History of urinary retention secondary to obstructive uropathy. Indwelling Locke. Recently hospitalized 06/29-07/01/16 for E. coli, Klebsiella, E. faecalis urosepsis and CINDI. Met sepsis criteria on admission (febrile 100.9F. Leukocytosis 28k, UTI). 07/08 Urine culture growing E coli sensitive to cefepime and nitrofurantoin. Once he has received at least 5 days of IV antibiotics, may consider transitioning to oral nitrofurantoin, as patient has had several bounce backs for UTI and subsequent sepsis. 07/08 BCx NG2D s/p vancomycin IV (07/08-07/09) Plan -Consult Urology * Recommend outpatient cystoscopy and urodynamic studies - Continue cefepime 2g IV Q12H (started 07/08) (2) Urinary retention Status: Chronic Plan: Further evaluation required for cause of urinary retention. Urology consulted and plans to perform cystoscopy and urodynamic studies as an outpatient. Continue tamsulosin 0.4mg HS daily (3) Alzheimer disease Status: Chronic Plan: -Continue memantine 10mg BID -Continue Aricept 10mg daily -Continue escitalopram 10mg daily (4) Tibial plateau fracture, left Status: Acute Plan: [facility] for progressive dementia, multiple falls and tibial plateau fx. Will need to follow- up with Orthopedic surgery as an outpatient. -Continue home tramadol 50mg TID PRN pain (5) Orthostatic hypotension Status: Chronic Plan: -Continue midodrine 5mg TID (6) Cerebrovascular disease Status: Chronic Plan: -Continue Plavix (7) FEN/PPX Status: Acute Plan: -Fluids: DC fluids, tolerating PO -Electrolytes: wnl, continue to monitor and replete -Nutrition: Regular diet -DVT ppx: Lovenox 40mg SQ Q24H (Naina Rogers MD R2) Problem Qualifiers (1) Alzheimer disease: Qualified Code: G30.9 - Alzheimer's dementia without behavioral disturbance, unspecified timing of dementia onset (2) Tibial plateau fracture, left: Qualified Code: S82.142S - Tibial plateau fracture, left, sequela Naina Rogers MD R2 Jul 11, 2016 09:04 Juan Carlos Egan MD Jul 12, 2016 11:48
[2016-07-11] MEDS: MEMANTINE HCL 10 MG TAB PO SCH ×2 (09:13→20:27)
[2016-07-11] MEDS: CLOPIDOGREL 75 MG TAB PO SCH (09:13)
[2016-07-11] MEDS: ESCITALOPRAM OXALATE 10 MG TAB PO SCH (09:13)
[2016-07-11] MEDS: DONEPEZIL HCL 5 MG TAB PO SCH (09:13)
[2016-07-11 09:57] LABS: HEMATOCRIT 32.3 % (39.0-51.0); MEAN CELL VOLUME 84.2 FL (80.0-100.0); MEAN CORPUSCULAR HEMOGLOBIN 28.6 PG (27.0-34.0); MEAN CORPUSCULAR HGB CONC 33.9 % (32.0-36.0); PLATELET COUNT 301 TH/MM3 (150-450); RED BLOOD COUNT 3.83 MIL/MM3 (4.50-5.90); REVIEW FLAG FINAL; WHITE BLOOD COUNT 7.3 TH/MM3 (4.0-11.0)
[2016-07-11 10:17] LABS: BICARBONATE 27.5 MEQ/L (21.0-32.0)
[2016-07-11] MEDS: ENOXAPARIN SODIUM 30 MG/0.3 ML SYRINGE SQ SCH (17:00)
[2016-07-11] MEDS: TAMSULOSIN HCL 0.4 MG CAP PO SCH (20:27)
[2016-07-12] VITALS (7 sets, daily range): BP systolic 130–174; BP diastolic 74–94; PULSE 63–77; RESP 17–19; TEMP 97.3–98.5; O2SAT 94–95
[2016-07-12] MEDS: CEFEPIME INJ 2,000 MG in SODIUM CHLORIDE 0.9% INJ 100 ML IV SCH ×2 (06:36→16:26)
[2016-07-12] MEDS ORDERED: POTASSIUM CHLORIDE 10 MEQ CONTROLLED RELEASE TAB PO ONE (07:45)
[2016-07-12] MEDS: SODIUM CHLORIDE 0.9% FLUSH 5 ML FLUSH FLUSH SCH ×2 (08:12→21:40)
[2016-07-12] MEDS: MEMANTINE HCL 10 MG TAB PO SCH ×2 (08:13→21:39)
[2016-07-12] MEDS: DONEPEZIL HCL 5 MG TAB PO SCH (08:13)
[2016-07-12] MEDS: MIDODRINE 5 MG TAB PO SCH ×3 (08:13→16:16)
[2016-07-12] MEDS: ESCITALOPRAM OXALATE 10 MG TAB PO SCH (08:13)
[2016-07-12] MEDS: CLOPIDOGREL 75 MG TAB PO SCH (08:13)
--- NOTE | 2016-07-12 09:11 | HHI.FPPN ---
Subjective Remarks No acute issues overnight. Vitals are stable, patient remains afebrile. He denies any chest pain, shortness of breath, fever, chills, nausea or vomiting. He is pleasantly demented and forgets why he is here. He is agreeable to plan when reminded. (Naina Rogers MD R2) Objective Vitals Vital Signs Date Time Temp Pulse Resp B/P Pulse Ox O2 Delivery O2 Flow Rate FiO2 07/12/16 08:08 98.2 72 18 130/74 94 07/12/16 04:00 97.9 63 18 160/93 95 07/12/16 00:26 97.3 70 18 167/94 94 07/11/16 20:00 99.1 88 18 162/94 93 07/11/16 20:00 Room Air 07/11/16 19:59 67 07/11/16 16:00 97.9 69 18 162/79 95 07/11/16 12:00 98.3 70 17 138/77 95 I/O 07/11/16 07/11/16 07/11/16 07/12/16 07/12/16 07/12/16 07:00 15:00 23:00 07:00 15:00 23:00 Intake Total 754 ml 240 ml 1152 ml Output Total 1525 ml 875 ml 1550 ml Balance -771 ml -635 ml -398 ml Intake Oral 240 ml 240 ml 120 ml IV Total 514 ml 1032 ml Output Urine Total 1525 ml 875 ml 1550 ml # Bowel Movements 1 (Naina Rogers MD R2) Result Diagram: 07/11/16 0910 07/11/16 0910 Imaging Last Impressions Chest X-Ray 07/08/16 1222 Signed Impressions: Service Date/Time: Friday, July 08, 2016 13:23 - CONCLUSION: Pacemaker , otherwise negative. Ryan Putnam MD FACR Objective Remarks CONST: Elderly male, lying in bed comfortably, in NAD. DERM: Numerous bruises in various stages of healing on arms bilaterally. Skin warm and dry. HEENNT: PERRL. MMM CV: RRR. No murmurs or gallops. RESP: Anterior lungs CTAB. No wheezing GI: Soft, NTND. +BS. : Locke in place, draining clear yellow urine. MSK: LLE below knee in rigid brace. L foot drop visible at rest. NEURO: Known Advanced AD. (Naina Rogers MD R2) Date of Insertion: Jul 08, 2016 (Naina Rogers MD R2) A/P Assessment and Plan 85yo male with a past medical history significant for dementia and obstructive uropathy with indwelling Locke catheter, admitted on 07/08/15 for urosepsis. Discharge Planning Anticipate discharge on Thursday 07/13, allowing for at least 5 days IV abx. PT rec D/C SNF (came from [facility]). Has all DME. Son: Mr. Duglas Zhou H [phone] C [phone] Egan and Dr. Casey (Naina Rogers MD R2) Attending Attestation Case reviewed and discussed with the resident team. Agree with plan of care as discussed with me and documented in the resident note. (Juan Carlos Egan MD) Problem List: (1) UTI (urinary tract infection) Status: Acute Plan: Sepsis resolved, UTI improving. History of urinary retention secondary to obstructive uropathy. Indwelling Locke. Recently hospitalized 06/29-07/01/16 for E. coli, Klebsiella, E. faecalis urosepsis and CINDI. Met sepsis criteria on admission (febrile 100.9F. Leukocytosis 28k, UTI). 07/08 Urine culture growing E coli sensitive to cefepime and nitrofurantoin. Once he has received at least 5 days of IV antibiotics, may consider transitioning to oral nitrofurantoin, as patient has had several bounce backs for UTI and subsequent sepsis. 07/08 BCx NG2D s/p vancomycin IV (07/08-07/09) Plan -Consult Urology Recommend outpatient cystoscopy and urodynamic studies - Continue cefepime 2g IV Q12H (started 07/08) (2) Urinary retention Status: Chronic Plan: Further evaluation required for cause of urinary retention. Urology consulted and plans to perform cystoscopy and urodynamic studies as an outpatient. Continue tamsulosin 0.4mg HS daily (3) Alzheimer disease Status: Chronic Plan: -Continue memantine 10mg BID -Continue Aricept 10mg daily -Continue escitalopram 10mg daily (4) Tibial plateau fracture, left Status: Acute Plan: [facility], [facility] for progressive dementia, multiple falls and tibial plateau fx. Will need to follow- up with Orthopedic surgery as an outpatient. -Continue home tramadol 50mg TID PRN pain (5) Orthostatic hypotension Status: Chronic Plan: -Continue midodrine 5mg TID (6) Cerebrovascular disease Status: Chronic Plan: -Continue Plavix (7) FEN/PPX Status: Acute Plan: -Fluids: tolerating PO -Electrolytes: wnl, continue to monitor and replete PRN -Nutrition: Regular diet -DVT ppx: Lovenox 40mg SQ Q24H (Naina Rogers MD R2) Problem Qualifiers (1) Alzheimer disease: Qualified Code: G30.9 - Alzheimer's dementia without behavioral disturbance, unspecified timing of dementia onset (2) Tibial plateau fracture, left: Qualified Code: S82.142S - Tibial plateau fracture, left, sequela Naina Rogers MD R2 Jul 12, 2016 09:11 Juan Carlos Egan MD Jul 12, 2016 11:49
[2016-07-12] MEDS ORDERED: cloNIDine HCL 0.1 MG TAB PO PRN (16:00)
[2016-07-12] MEDS: ENOXAPARIN SODIUM 30 MG/0.3 ML SYRINGE SQ SCH (16:27)
[2016-07-12] MEDS ORDERED: ENOXAPARIN SODIUM 40 MG/0.4 ML SYRINGE SQ SCH (17:00)
[2016-07-12] MEDS: TAMSULOSIN HCL 0.4 MG CAP PO SCH (21:39)
[2016-07-13] VITALS: BP 169/82; PULSE 60; RESP 18; TEMP 97.3; O2SAT 96
[2016-07-13] MEDS: CEFEPIME INJ 2,000 MG in SODIUM CHLORIDE 0.9% INJ 100 ML IV SCH (03:39)
[2016-07-13 04:00] VITALS: BP 177/92; PULSE 67; RESP 17; TEMP 97.9; O2SAT 94
[2016-07-13 07:45] VITALS: PULSE 71
[2016-07-13 08:00] VITALS: BP 124/81; PULSE 68; RESP 20; TEMP 98.1; O2SAT 93
[2016-07-13] MEDS ORDERED: MACR100C3 PO (08:44)
--- NOTE | 2016-07-13 08:46 | HHI.DCPOC ---
Discharge Care Plan Diagnosis: (1) Sepsis secondary to UTI Goals to Promote Your Health * To prevent worsening of your condition and complications * To maintain your health at the optimal level Directions to Meet Your Goals Take your medications as prescribed Follow your dietary instruction Follow activity as directed Keep your appointments as scheduled Take your immunizations and boosters as scheduled If your symptoms worsen call your PCP, if no PCP go to Urgent Care Center or Emergency Room Smoking is Dangerous to Your Health. Avoid second hand smoke Call the 24-hour hour crisis hotline for domestic abuse at Elizabeth Davison MD R3 Jul 13, 2016 08:46
[2016-07-13] MEDS: SODIUM CHLORIDE 0.9% FLUSH 5 ML FLUSH FLUSH SCH (09:01)
[2016-07-13] MEDS: MEMANTINE HCL 10 MG TAB PO SCH (09:01)
[2016-07-13] MEDS: MIDODRINE 5 MG TAB PO SCH (09:01)
[2016-07-13] MEDS: ESCITALOPRAM OXALATE 10 MG TAB PO SCH (09:01)
[2016-07-13] MEDS: DONEPEZIL HCL 5 MG TAB PO SCH (09:01)
[2016-07-13] MEDS: CLOPIDOGREL 75 MG TAB PO SCH (09:01)
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
[2016-07-13 12:00] VITALS: BP 93/60; PULSE 71; RESP 20; TEMP 97.9; O2SAT 95
[2016-07-16] MEDS ORDERED: ULTR50TA5 PO (13:32)
--- NOTE | 2016-07-23 08:08 | HHI.DS ---
Discharge Summary Admission Date Jul 08, 2016 at 15:07 Discharge Date: Jul 13, 2016 Admitting Diagnosis (1) UTI (urinary tract infection) Diagnosis: Principal Plan: Hx urinary retention 2/2 obstructive uropathy and dementia. Recently hospitalized 06/29-07/01/16 for E. coli, Klebsiella, E. faecalis urosepsis and CINDI. Met sepsis criteria on admission (febrile 100.9F. Leukocytosis 28k, UTI) . Sepsis resolved, BCx 07/08: NGTD. Urine cx (07/08): E coli sensitive to cefepime and nitrofurantoin. Hx of cefepime (07/08-07/13) and Vanc (07/08-07/09) use while inpatient, discharged with macrodantin -Discharge today 07/13/16 to [facility] ([place]) -Urology consulted: recommend outpatient cystoscopy and urodynamic studies, follow up outpt w Urology --Continue macrodantin PO x5 days (2) Urinary retention Diagnosis: Principal Plan: Further evaluation required -Continue tamsulosin 0.4mg HS daily -F/u Urology as outpatient for cystoscopy and urodynamic studies (3) Alzheimer disease Diagnosis: Secondary Plan: -Continue memantine 10mg BID -Continue Aricept 10mg daily -Continue escitalopram 10mg daily (4) Tibial plateau fracture, left Diagnosis: Secondary Plan: -Continue home tramadol 50mg TID PRN pain -Follow up with Orthopedic surgery as outpatient (5) Orthostatic hypotension Diagnosis: Secondary Plan: -Continue midodrine 5mg TID (6) Cerebrovascular disease Diagnosis: Secondary Plan: -Continue Plavix [facility] Urology, Case Management Brief History 85y male with dementia, obstructive uropathy, and indwelling Locke presents from [facility] 07/08/16 with AMS, fever, and UTI. Pt is poor historian. History gained from son and EMR. Altered mental status began yesterday, when son noticed he was more agitated, unable to feed self, and more confused than normal. At baseline, will recognize son and can feed himself, though he sometimes forgets who in Mar 2016 has passed or will try to walk on leg with L tibial fracture. Recently hospitalized 06/29-07/01/16 for Klebsiella, E. coli, and Enteroccocus urosepsis after tugging on line and malpositioning Locke. Presented to PCP, Dr. Egan, yesterday who started Levaquin, prior to admission today. Imaging Last Impressions Chest X-Ray 07/08/16 1222 Signed Impressions: Service Date/Time: Friday, July 08, 2016 13:23 - CONCLUSION: Pacemaker , otherwise negative. Ryan Putnam MD FACR PE at Discharge CONST: Elderly male, lying in bed comfortably, in NAD. DERM: Numerous bruises in various stages of healing on arms bilaterally, present on admission. Skin warm and dry. HEENNT: PERRL. MMM CV: RRR. No murmurs or gallops. RESP: Anterior lungs CTAB. No wheezing GI: Soft, NTND. +BS. : Locke in place, draining clear yellow urine. MSK: LLE below knee in rigid brace. L foot drop visible at rest. NEURO: Known Advanced AD. Will smile and carry on basic conversation. Not oriented to year or purpose for being in the hospital. Hospital Course 85y male with advanced dementia, obstructive uropathy, and indwelling Locke hospitalized 07/08-07/13/16 for E. coli urosepsis. Of note, pt was hospitalized one week prior for E. coli, Klebsiella, E. faecalis urosepsis and CINDI.. This admission, pt had uncomplicated hospital course, responding well to treatment with antibiotics. Sepsis resolved and he returned to his baseline mental status (alert to person, not place or time). Was discharged with five days of macrodantin ( 10 total days of antibiotics) with recommendations to follow up with urology for cystoscopy and urodynamic studies and repeat U/A in 1 week. Plan to discharge to SNF at [facility] for recovery. Medication changes and recommended follow up as below. Pt Condition on Discharge: Stable Discharge Disposition: Discharge to SNF Discharge Instructions DIET: Follow Instructions for: As Tolerated, No Restrictions Activities you can perform: Regular-No Restrictions Follow up Referrals: PCP Follow-up - 1 Week SNF/[facility]/ with [facility] - 1 Week with Seven Chaudhry MD New Orders: UA C+S IF INDICATED - 1 Week New Medications: Nitrofurantoin Macrocrystal (Macrodantin) 100 Mg Cap 100 MG PO QID Infection #20 Ref 0 CAP Continued Medications: Acetaminophen (Mapap) 325 Mg Tab 650 MG PO Q4HR PRN PAIN/TEMP Ref 0 TAB Bisacodyl Supp (Dulcolax Supp) 10 Mg Supp 10 MG RECTAL HS PRN CONSTIPATION #12 Ref 0 SUPP Clopidogrel (Plavix) 75 Mg Tab 75 MG PO DAILY Days 30 TAB Donepezil (Aricept) 10 Mg Tab 10 MG PO DAILY Dementia #30 Ref 0 TAB Escitalopram (Escitalopram) 10 Mg Tab 10 MG PO DAILY Days 30 TAB Magnesium Hydroxide Liq (Milk of Magnesia Liq) 400 Mg/5 Ml Susp 30 ML PO HS PRN CONSTIPATION #1 Ref 0 BOTTLE Memantine (Namenda) 10 Mg Tab 10 MG PO BID Days 30 TAB Midodrine (Midodrine) 5 Mg Tab 5 MG PO TID Days 30 TAB Multiple Vitamins W/ Minerals (Theragran-M) 1 Tab 1 TAB PO DAILY Nutritional Supplement Ref 0 TAB Tamsulosin (Flomax) 0.4 Mg Cap 0.4 MG PO HS Days 30 CAP Discontinued Medications: Levofloxacin (Levaquin) 500 Mg Tab 500 MG PO EVERY OTHER DAY Infection Ref 0 TAB Ruth Casey MD R1 Jul 23, 2016 08:08 Tamsulosin (Flomax) 0.4 Mg Cap 0.4 MG PO HS Days 30 CAP Discontinued Medications: Levofloxacin (Levaquin) 500 Mg Tab 500 MG PO EVERY OTHER DAY Infection Ref 0 TAB Ruth Casey MD R1 Jul 23, 2016 08:08
[2016-07-23] MEDS ORDERED: PROS5TAB PO (10:52)
[2016-07-23] MEDS ORDERED: FLOR250C PO (16:25)
== END 2016-07-13 12:17 | DRG 698 ==
LOC: NEDAMB 11:41 → NEDA 15:07 → N04A 18:40 → N04B 07-10 01:05
PROVIDERS: ADMIT Family Medicine; ATTEND Family Medicine
PROC: 0T2BX0Z Change Drainage Device in Bladder, External Approach (ICD-10-PCS; principal; 2016-07-08)
DX: T83.511A Infection and inflammatory reaction due to indwelling urethral catheter, initial encounter (principal); A41.9 Sepsis, unspecified organism; R65.20 Severe sepsis without septic shock; N17.9 Acute kidney failure, unspecified; G30.9 Alzheimer's disease, unspecified; N13.9 Obstructive and reflux uropathy, unspecified; N39.0 Urinary tract infection, site not specified; F02.80 Dementia in other diseases classified elsewhere, unspecified severity, without behavioral disturbance, psychotic disturbance, mood disturbance, and anxiety; I95.1 Orthostatic hypotension; R33.8 Other retention of urine; Z86.73 Personal history of transient ischemic attack (TIA), and cerebral infarction without residual deficits; I10 Essential (primary) hypertension; R29.6 Repeated falls; B96.20 Unspecified Escherichia coli [E. coli] as the cause of diseases classified elsewhere; Y84.6 Urinary catheterization as the cause of abnormal reaction of the patient, or of later complication, without mention of misadventure at the time of the procedure; S82.142D Displaced bicondylar fracture of left tibia, subsequent encounter for closed fracture with routine healing; Z87.440 Personal history of urinary (tract) infections; Z95.0 Presence of cardiac pacemaker; Z87.891 Personal history of nicotine dependence; Z88.3 Allergy status to other anti-infective agents; Z88.0 Allergy status to penicillin
CPT/HCPCS: 36600; 51702; 71010; 80048; 80053; 81001; 82805; 83605; 83735; 84484; 85025; 85027; 85610; 85730; 87040; 87077; 87086; 87186; 93005; 96360; 96365; 96375; J0456; J0692; J1650; J2543; J3370; J7030; J7040; J7050

== ENCOUNTER 2016-07-27 21:14 | Emergency (ER) | payer MEDICARE, BC ==
[~2016-07-27] VITALS: Ht 170.2 cm; Wt 80.0 kg
[~2016-07-27 21:14] MED LIST changes: +FLOR250C PO; -LEVA750T PO; +PROS5TAB PO; -THERTAB15 PO; +THERTAB27 PO
[2016-07-27 21:44] VITALS: BP 168/78; PULSE 83; RESP 16; TEMP 98.3; O2SAT 98
[2016-07-27 23:19] LABS: BLOOD, URINE LARGE (NEG); GLUCOSE,URINE NEG (NEG); KETONE, URINE NEG (NEG); MUCUS URINE MOD /lpf (OCC); NITRITE,URINE NEG (NEG); SQUAMOUS EPITHELIAL CELL URINE <1 /hpf (0-5); URINE COLOR YELLOW (YELLW/STRAW)
[2016-07-27 23:22] LABS: COMMENT (UR) CATH-CULTURE IND; CULTURE IF INDICATED CATH CULTURE IND
[2016-07-27] MEDS ORDERED: MACR100C3 PO (23:31)
--- NOTE | 2016-07-27 23:31 | PD ---
HPI Chief Complaint: Complaint Time Seen by Provider: 21:21 Travel History International Travel<30 days: No Contact w/Intl Traveler<30days: No Traveled to known affect area: No History of Present Illness HPI The patient self discontinued his Locke catheter his rehabilitation facility. He is 85 years old. Bright red blood was visualized about the meatus. In the ER and history somewhat limited as the patient has dementia. He was admitted here for UTI sepsis and was discharged with Macrobid. Location genitourinary. Onset sudden. Timing constant. PFSH Past Medical History Hx Anticoagulant Therapy: No Arthritis: Yes Asthma: No Autoimmune Disease: No Anxiety: No Depression: Yes Heart Rhythm Problems: Yes Cancer: No Cardiovascular Problems: Yes (PACEMAKER) High Cholesterol: No Chemotherapy: No Chest Pain: No Congestive Heart Failure: No COPD: No Cerebrovascular Accident: No Diabetes: No Diminished Hearing: No Endocrine: No Gastrointestinal Disorders: Yes (ulcer bleeding) GERD: No Genitourinary: No Hiatal Hernia: No Immune Disorder: No Implanted Vascular Access Dvce: Yes Kidney Stones: No Musculoskeletal: No Neurologic: Yes (head injury, encephalopathy, memory deficit, L foot drop, ataxia) Psychiatric: Yes Reproductive: No Respiratory: No Migraines: No Radiation Therapy: No Renal Failure: No Seizures: No Sickle Cell Disease: No Sleep Apnea: No Thyroid Disease: No Ulcer: Yes Tetanus Vaccination: Unknown Influenza Vaccination: No Past Surgical History Abdominal Surgery: Yes (BLEEDING ULCER) AICD: No Arteriovenous Shunt: No Body Medical Devices: rib fracture fixation device Cardiac Surgery: Yes (PACE MAKER) Ear Surgery: No Endocrine Surgery: No Eye Surgery: Yes (cataracts) Genitourinary Surgery: No Gynecologic Surgery: No Hysterectomy: No Insulin Pump: No Joint Replacement: No Oral Surgery: No Pacemaker: Yes Thoracic Surgery: No Other Surgery: Yes Social History Alcohol Use: No Tobacco Use: No Substance Use: No Allergies-Medications (Allergen,Severity, Reaction): Coded Allergies: Neosporin (Verified Allergy, Mild, rash, 07/27/16) per son Penicillin (Verified Adverse Reaction, Intermediate, rash , 07/27/16) Received Cefepime and zosyn 07/08/17 in ED w/o problems. Continue to monitor Reported Meds & Prescriptions Reported Meds & Active Scripts Active Macrodantin (Nitrofurantoin Macrocrystal) 100 Mg Cap 100 Mg PO QID Ultram (Tramadol HCl) 50 Mg Tab 50 Mg PO BID PRN Flomax (Tamsulosin HCl) 0.4 Mg Cap 0.4 Mg PO HS 30 Days Midodrine 5 Mg Tab 5 Mg PO TID 30 Days Namenda (Memantine) 10 Mg Tab 10 Mg PO BID 30 Days Escitalopram (Escitalopram Oxalate) 10 Mg Tab 10 Mg PO DAILY 30 Days Plavix (Clopidogrel Bisulfate) 75 Mg Tab 75 Mg PO DAILY 30 Days Reported Florastor (Saccharomyces Boulardii) 250 Mg Cap 500 Mg PO BID 14 Days Proscar (Finasteride) Unknown Strength Tab Unknown Dose PO DAILY Do not crush. Theragran-M (Multiple Vitamins W/ Minerals) 1 Tab 1 Tab PO DAILY Dulcolax Supp (Bisacodyl) 10 Mg Supp 10 Mg RECTAL HS PRN Mapap (Acetaminophen) 325 Mg Tab 650 Mg PO Q4HR PRN Milk of Magnesia Liq (Magnesium Hydroxide) 400 Mg/5 Ml Susp 30 Ml PO HS PRN Aricept (Donepezil) 10 Mg Tab 10 Mg PO DAILY Review of Systems ROS Limitations: Altered Mental Status Physical Exam Narrative GENERAL: 85-year-old male mildly demented GENITOURINARY: Locke catheter in place. Trace blood about the urethral meatus. Locke bag with dark urine, no bright red hematuria. SKIN: Warm and dry. HEAD: Atraumatic. Normocephalic. EYES: Pupils equal and round. No scleral icterus. No injection or drainage. ENT: No nasal bleeding or discharge. Mucous membranes pink and moist. NECK: Trachea midline. No JVD. CARDIOVASCULAR: Regular rate and rhythm. No murmur appreciated. RESPIRATORY: No accessory muscle use. Clear to auscultation. Breath sounds equal bilaterally. GASTROINTESTINAL: Abdomen soft, non-tender, nondistended. Hepatic and splenic margins not palpable. MUSCULOSKELETAL: No obvious deformities. No clubbing. No cyanosis. No edema. NEUROLOGICAL: Awake answers questions. No obvious cranial nerve deficits. Motor grossly within normal limits. Normal speech. PSYCHIATRIC: Appropriate mood and affect; insight and judgment normal. Data Data Last Documented VS Vital Signs Date Time Temp Pulse Resp B/P Pulse Ox O2 Delivery O2 Flow Rate FiO2 07/27/16 21:47 16 16 07/27/16 21:44 98.3 168/78 98 Orders Urinalysis - C+S If Indicated (07/27/16 21:45) Urinary Catheter Insert/Apply (07/27/16 21:47) Urine Culture (07/27/16 21:50) Labs Laboratory Tests Test 07/27/16 21:50 Urine Color YELLOW Urine Turbidity HAZY Urine pH 6.0 Urine Specific Gaffney 1.027 Urine Protein 100 mg/dL Urine Glucose (UA) NEG mg/dL Urine Ketones NEG mg/dL Urine Occult Blood LARGE Urine Nitrite NEG Urine Bilirubin NEG Urine Urobilinogen LESS THAN 2.0 MG/DL Urine Leukocyte Esterase MOD Urine RBC /hpf Urine WBC 114 /hpf Urine Squamous Epithelial <1 /hpf Cells Urine Mucus MOD /lpf Microscopic Urinalysis Comment CATH-CULTURE IND MDM Medical Decision Making Medical Screen Exam Complete: Yes Emergency Medical Condition: Yes Medical Record Reviewed: Yes Differential Diagnosis Hematuria, urethral tear, UTI Narrative Course UTI considered. Macrobid prescribed. Locke catheter exchanged. Follow up with urology, Dr Chaudhry. Diagnosis Primary Impression: Urinary tract infection Qualified Code: T83.511S - Urinary tract infection associated with catheterization of urinary tract, unspecified indwelling urinary catheter type, sequela Additional Impression: Locke catheter problem Qualified Code: T83.9XXA - Locke catheter problem, initial encounter Referrals: John Paul Chaudhry MD 2 days Juan Carlos Egan MD 2 days Additional Instructions: You have a choice when it comes to health care, and we are glad that you chose [facility] Hopefully, we have met your expectations on today's visit. You are welcome to return to [facility] at any time, as we are committed to meeting the health care needs of our community. Med/Other Pt SpecificInfo: Prescription(s) given Scripts Nitrofurantoin Macrocrystal (Macrodantin)100 Mg [id number] Mg PO QID #20 CAP Ref 0 Prov:Agustin William MD 07/27/16 Disposition: 01 DISCHARGE HOME Condition: Stable Agustin William MD Jul 27, 2016 23:31
[2016-07-28 06:17] VITALS: BP 175/95; PULSE 70; RESP 18; TEMP 98.4; O2SAT 100
[2016-07-28] MEDS ORDERED: CEFT250T8 PO (12:21)
== END 2016-07-28 09:12 | disposition home or self-care (01) ==
LOC: NEPE 21:14 → NEPA 07-28 09:12
DX: N39.0 Urinary tract infection, site not specified (principal); T83.9XXA Unspecified complication of genitourinary prosthetic device, implant and graft, initial encounter; F03.90 Unspecified dementia, unspecified severity, without behavioral disturbance, psychotic disturbance, mood disturbance, and anxiety
CPT/HCPCS: 81001; 87086; 99284

== ENCOUNTER 2016-08-02 23:16 | Inpatient (IN) | payer MEDICARE, BC ==
[~2016-08-02 23:16] MED LIST changes: +CEFT250T8 PO
[2016-08-02 23:20] VITALS: O2SAT 80
[2016-08-02] MEDS ORDERED: SODIUM CHLOR 0.9% 1000 ML INJ 1,000 ML IV ONE (23:30)
[2016-08-02 23:55] LABS: AUTOMATED NEUTROPHIL # 9.5 TH/MM3 (1.8-7.7); BASOPHIL # 0.1 TH/MM3 (0-0.2); BASOPHIL % 0.8 % (0.0-2.0); EOSINOPHIL # 0.3 TH/MM3 (0-0.4); EOSINOPHIL % 2.6 % (0.0-4.0); HEMATOCRIT 34.6 % (39.0-51.0); HEMO FLAGS DIFF FINAL; LYMPHOCYTE # 0.9 TH/MM3 (1.0-4.8); MEAN CELL VOLUME 83.8 FL (80.0-100.0); MEAN CORPUSCULAR HEMOGLOBIN 27.6 PG (27.0-34.0); MONO % 4.5 % (0.0-8.0); NEUT % 84.1 % (16.0-70.0); PLATELET COUNT 230 TH/MM3 (150-450); RED BLOOD COUNT 4.12 MIL/MM3 (4.50-5.90); RED CELL DISTRIBUTION WIDTH 15.3 % (11.6-17.2); WHITE BLOOD COUNT 11.4 TH/MM3 (4.0-11.0)
[2016-08-03] VITALS (11 sets, daily range): BP systolic 108–147; BP diastolic 65–90; PULSE 76–107; RESP 16–25; TEMP 95.6–98.7; O2SAT 92–98
--- NOTE | 2016-08-03 00:04 | RADRPT ---
EXAM DATE/TIME: 08/02/2016 23:32 [place] COMPARISON: CHEST SINGLE AP, July 08, 2016, 13:23. INDICATIONS : Pt having shortness of breath. MEDICAL HISTORY : None. SURGICAL HISTORY : Pacemaker. ENCOUNTER: Initial ACUITY: 1 day PAIN SCORE: Non-responsive. LOCATION: Bilateral chest FINDINGS: The cardiac silhouette is enlarged in transverse diameter. A biventricular defibrillator is in place via a left sided approach. There is parenchymal scarring on the left. Old left humerus fracture and o ld right rib fractures are present. CONCLUSION: 1. Cardiomegaly. No acute pulmonary disease. Vitor Haq MD on August 03, 2016 at 0:01 Board Certified Radiologist. This report was verified electronically.
[2016-08-03 00:05] LABS: APTT (PATIENT) 29.5 SEC (24.3-30.1); PROTHROMBIN TIME - PATIENT 10.8 SEC (9.8-11.6)
[2016-08-03 00:12] LABS: ALT (GPT) 27 U/L (12-78); ANION GAP 11 MEQ/L (5-15); AST (GOT) 19 U/L (15-37); BICARBONATE 23.1 MEQ/L (21.0-32.0); BLOOD UREA NITROGEN 51 MG/DL (7-18); CHLORIDE 110 MEQ/L (98-107); GLOMERULAR FILTRATION RATE 23 ML/MIN (>89); MAGNESIUM 2.5 MG/DL (1.5-2.5); SODIUM (NA) 144 MEQ/L (136-145)
[2016-08-03 00:15] LABS: ALKALINE PHOSPHATASE 102 U/L (45-117); TOTAL BILIRUBIN ADULT 0.3 MG/DL (0.2-1.0)
[2016-08-03 00:16] LABS: CREATINE KINASE 48 U/L (39-308)
[2016-08-03] MEDS ORDERED: FINA5TAB2 PO (00:21)
[2016-08-03] MEDS ORDERED: ASPIRIN 81 MG CHEW TAB CHEW ONE (01:00)
[2016-08-03 02:03] LABS: BACTERIA, URINE RARE /hpf; BLOOD, URINE SMALL (NEG); COMMENT (UR) CATH-CULTURE IND; CULTURE IF INDICATED CATH CULTURE IND; GLUCOSE,URINE NEG (NEG); HYALINE CAST, URINE 13 /lpf (RARE); KETONE, URINE NEG (NEG); MUCUS URINE FEW /lpf (OCC); NITRITE,URINE NEG (NEG); SQUAMOUS EPITHELIAL CELL URINE <1 /hpf (0-5); URINE COLOR YELLOW (YELLW/STRAW)
[2016-08-03] MEDS ORDERED: SODIUM CHLORIDE 0.9% FLUSH 5 ML FLUSH FLUSH PRN (03:45)
[2016-08-03] MEDS ORDERED: NALOXONE HCL 0.4 MG/ML AMP IV PRN (03:45)
[2016-08-03] MEDS ORDERED: MAGNESIUM HYDROXIDE SUSP 30 ML CUP PO PRN ×2 (03:45→04:00)
[2016-08-03] MEDS ORDERED: BISACODYL 10 MG SUPP RECTAL PRN (04:00)
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
[2016-08-03] MEDS ORDERED: ACETAMINOPHEN 325 MG TAB PO ONE (04:15)
[2016-08-03] MEDS ORDERED: traMADol HCL 50 MG TAB PO PRN (04:15)
--- NOTE | 2016-08-03 04:16 | PD ---
HPI Chief Complaint: Altered Mental Status Time Seen by Provider: 23:28 Travel History International Travel<30 days: No Contact w/Intl Traveler<30days: No Traveled to known affect area: No History of Present Illness HPI Patient is an 85 year old male presents from the [facility] for evaluation of Hypoxia and cough. Patient is fairly severely demented and this limits history. Majority of history comes from EMS. Patient quite confused but denies any pain. He has been admitted to our institution before under family medicine service. PFSH Past Medical History Hx Anticoagulant Therapy: No Arthritis: Yes Asthma: No Autoimmune Disease: No Anxiety: No Depression: Yes Heart Rhythm Problems: Yes Cancer: No Cardiovascular Problems: Yes (PACEMAKER) High Cholesterol: No Chemotherapy: No Chest Pain: No Congestive Heart Failure: No COPD: No Cerebrovascular Accident: No Diabetes: No Diminished Hearing: No Endocrine: No Gastrointestinal Disorders: Yes (ulcer bleeding) GERD: No Genitourinary: No Hiatal Hernia: No Immune Disorder: No Implanted Vascular Access Dvce: Yes Kidney Stones: No Musculoskeletal: No Neurologic: Yes (head injury, encephalopathy, memory deficit, L foot drop, ataxia) Psychiatric: Yes Reproductive: No Respiratory: No Migraines: No Radiation Therapy: No Renal Failure: No Seizures: No Sickle Cell Disease: No Sleep Apnea: No Thyroid Disease: No Ulcer: Yes Past Surgical History Abdominal Surgery: Yes (BLEEDING ULCER) AICD: No Arteriovenous Shunt: No Body Medical Devices: rib fracture fixation device Cardiac Surgery: Yes (PPM) Ear Surgery: No Endocrine Surgery: No Eye Surgery: Yes (cataracts) Genitourinary Surgery: No Gynecologic Surgery: No Hysterectomy: No Insulin Pump: No Joint Replacement: No Oral Surgery: No Pacemaker: Yes Thoracic Surgery: No Other Surgery: Yes Social History Alcohol Use: No Tobacco Use: No (50 YEARS AGO) Substance Use: No Allergies-Medications (Allergen,Severity, Reaction): Coded Allergies: Neosporin (Verified Allergy, Mild, rash, 08/03/16) per son Penicillin (Verified Adverse Reaction, Intermediate, rash , 08/03/16) Received Cefepime and zosyn 07/08/17 in ED w/o problems. Continue to monitor Reported Meds & Prescriptions Reported Meds & Active Scripts Active Ultram (Tramadol HCl) 50 Mg Tab 50 Mg PO BID PRN Flomax (Tamsulosin HCl) 0.4 Mg Cap 0.4 Mg PO HS 30 Days Midodrine 5 Mg Tab 5 Mg PO TID 30 Days Namenda (Memantine) 10 Mg Tab 10 Mg PO BID 30 Days Escitalopram (Escitalopram Oxalate) 10 Mg Tab 10 Mg PO DAILY 30 Days Plavix (Clopidogrel Bisulfate) 75 Mg Tab 75 Mg PO DAILY 30 Days Reported Finasteride 5 Mg Tab 5 Mg PO DAILY Do not crush. Ceftin (Cefuroxime Axetil) 250 Mg Tab 250 Mg PO BID 10 Days Theragran-M (Multiple Vitamins W/ Minerals) 1 Tab 1 Tab PO DAILY Dulcolax Supp (Bisacodyl) 10 Mg Supp 10 Mg RECTAL HS PRN Mapap (Acetaminophen) 325 Mg Tab 650 Mg PO Q4HR PRN Milk of Magnesia Liq (Magnesium Hydroxide) 400 Mg/5 Ml Susp 30 Ml PO HS PRN Aricept (Donepezil) 10 Mg Tab 10 Mg PO DAILY Review of Systems ROS Limitations: Other: (Demented) Physical Exam Narrative GENERAL: WD/WN, somnolent but in NAD. SKIN: Warm and dry. HEAD: Atraumatic. Normocephalic. EYES: Pupils equal and round. No scleral icterus. No injection or drainage. ENT: No nasal bleeding or discharge. Mucous membranes pink and moist. NECK: Trachea midline. No JVD. CARDIOVASCULAR: Regular rate and rhythm. RESPIRATORY: No accessory muscle use. Clear to auscultation. Breath sounds equal bilaterally. GASTROINTESTINAL: Abdomen soft, non-tender, nondistended. Hepatic and splenic margins not palpable. MUSCULOSKELETAL: Extremities without clubbing, cyanosis, or edema. No obvious deformities. NEUROLOGICAL: Awake and alert. Oriented to self only. No obvious cranial nerve deficits. Motor grossly within normal limits. Follows commands in all four extremities.. Normal speech. PSYCHIATRIC: flat affect. Not oriented. Data Data Last Documented VS Vital Signs Date Time Temp Pulse Resp B/P Pulse Ox O2 Delivery O2 Flow Rate FiO2 08/03/16 02:00 94 24 138/89 Nasal Cannula 4 08/03/16 00:11 92 Orders Electrocardiogram (08/02/16 23:28) Complete Blood Count With Diff (08/02/16 23:28) Comprehensive Metabolic Panel (08/02/16 23:28) Prothrombin Time / Inr (Pt) (08/02/16 23:28) Act Partial Throm Time (Ptt) (08/02/16 23:28) Lactic Acid Sepsis Protocol (08/02/16 23:28) Magnesium (Mg) (08/02/16 23:28) Phosphorus (Po4) (08/02/16 23:28) Ckmb (Isoenzyme) Profile (08/02/16 23:28) Troponin I (08/02/16 23:28) Urinalysis - C+S If Indicated (08/02/16 23:28) Blood Culture (08/02/16 23:28) Chest, Single Ap (08/02/16 23:28) Blood Glucose (08/02/16 23:28) Ecg Monitoring (08/02/16 23:) Iv Access Insert/Monitor (08/02/16:) Oximetry (08/02/16:) Oxygen Administration (08/02/16 23:) Sodium Chlor 0.9% 1000 Ml Inj (Ns 1000 M (08/02/16 23:30) Aspirin Chew (Aspirin Chew) (08/03/16 01:00) Replace [place] (08/03/16 01:30) Urine Culture (08/03/16 01:45) Admit Order (Ed Use Only) (08/03/16 ) Labs Laboratory Tests Test 08/02/16 08/03/16 23:15 01:45 White Blood Count 11.4 TH/MM3 Red Blood Count 4.12 MIL/MM3 Hemoglobin 11.4 GM/DL Hematocrit 34.6 % Mean Corpuscular Volume 83.8 FL Mean Corpuscular Hemoglobin 27.6 PG Mean Corpuscular Hemoglobin 33.0 % Concent Red Cell Distribution Width 15.3 % Platelet Count 230 TH/MM3 Mean Platelet Volume 8.9 FL Neutrophils (%) (Auto) 84.1 % Lymphocytes (%) (Auto) 8.0 % Monocytes (%) (Auto) 4.5 % Eosinophils (%) (Auto) 2.6 % Basophils (%) (Auto) 0.8 % Neutrophils # (Auto) 9.5 TH/MM3 Lymphocytes # (Auto) 0.9 TH/MM3 Monocytes # (Auto) 0.5 TH/MM3 Eosinophils # (Auto) 0.3 TH/MM3 Basophils # (Auto) 0.1 TH/MM3 CBC Comment DIFF FINAL Differential Comment Prothrombin Time 10.8 SEC Prothromb Time International 1.0 RATIO Ratio Activated Partial 29.5 SEC Thromboplast Time Sodium Level 144 MEQ/L Potassium Level 4.0 MEQ/L Chloride Level 110 MEQ/L Carbon Dioxide Level 23.1 MEQ/L Anion Gap 11 MEQ/L Blood Urea Nitrogen 51 MG/DL Creatinine 2.61 MG/DL Estimat Glomerular Filtration 23 ML/MIN Rate Random Glucose 129 MG/DL Lactic Acid Level 1.1 mmol/L Calcium Level 8.5 MG/DL Phosphorus Level 3.3 MG/DL Magnesium Level 2.5 MG/DL Total Bilirubin 0.3 MG/DL Aspartate Amino Transf 19 U/L (AST/SGOT) Alanine Aminotransferase 27 U/L (ALT/SGPT) Alkaline Phosphatase 102 U/L Total Creatine Kinase 48 U/L Troponin I 0.24 NG/ML Total Protein 7.0 GM/DL Albumin 3.0 GM/DL Urine Color YELLOW Urine Turbidity HAZY Urine pH 5.0 Urine Specific [place] 1.019 Urine Protein 30 mg/dL Urine Glucose (UA) NEG mg/dL Urine Ketones NEG mg/dL Urine Occult Blood SMALL Urine Nitrite NEG Urine Bilirubin NEG Urine Urobilinogen LESS THAN 2.0 MG/DL Urine Leukocyte Esterase MOD Urine RBC 24 /hpf Urine WBC 24 /hpf Urine Squamous Epithelial <1 /hpf Cells Urine Bacteria RARE /hpf Urine Hyaline Casts 13 /lpf Urine Mucus FEW /lpf Urine Yeast (Budding) RARE Microscopic Urinalysis Comment CATH-CULTURE IND MDM Medical Decision Making Medical Screen Exam Complete: Yes Emergency Medical Condition: Yes Interpretation(s) EKG shows paced rhythm. Differential Diagnosis Hypoxia, acute kidney injury, sepsis, pna, uti. Narrative Course Patient saturating 80% on arrival, tolerating NC very well. Patient is DNR/DNI and was transported with order. Has CINDI on workup. With hypoxia, age, history of cough, suspect sepsis and antibiotics are ordered. Fluid resuscitation kept to a minimum 2/2 normal lactic acid but was given 1L NS. CXR clear. Has evidence of UTI. Troponin elevated. ASA given. Patient discussed with family medicine service, apparently patient had an episode today of sluggishness and combativeness. They call the service from the [place] and was instructed to come to the ER by residents. Diagnosis Primary Impression: Sepsis secondary to UTI Additional Impressions: NSTEMI (non-ST elevated myocardial infarction) Acute respiratory failure with hypoxia Admitting Information Admitting Physician Requests: Admit Condition: Stable Amado Chapin MD Aug 03, 2016 04:16
[2016-08-03] MEDS: CEFEPIME INJ 2,000 MG in SODIUM CHLORIDE 0.9% INJ 100 ML IV SCH (04:34)
[2016-08-03] MEDS: SODIUM CHLOR 0.9% 1000 ML INJ 1,000 ML IV SCH ×3 (04:35→17:27)
[2016-08-03] MEDS ORDERED: HALOPERIDOL LACTATE 5 MG/ML AMP IM ONE (06:30)
[2016-08-03] MEDS: HEPARIN SODIUM - SQ 10,000 UNITS/ML VIAL SQ SCH ×3 (06:36→20:31)
[2016-08-03] MEDS ORDERED: ACETAMINOPHEN 325 MG TAB PO PRN (08:15)
[2016-08-03] MEDS: MULTIVITAMINS/MINERALS THERAPEUTIC TAB PO SCH (09:00)
[2016-08-03] MEDS ORDERED: SODIUM CHLORIDE 0.9% FLUSH 5 ML FLUSH FLUSH SCH (09:00)
[2016-08-03] MEDS: FINASTERIDE 5 MG TAB PO SCH (09:00)
[2016-08-03] MEDS: DONEPEZIL HCL 5 MG TAB PO SCH (09:30)
[2016-08-03] MEDS: CLOPIDOGREL 75 MG TAB PO SCH (09:30)
[2016-08-03] MEDS: MEMANTINE HCL 10 MG TAB PO SCH ×2 (09:30→20:31)
[2016-08-03] MEDS: ESCITALOPRAM OXALATE 10 MG TAB PO SCH (09:30)
[2016-08-03] MEDS: ASPIRIN EC 81 MG TABEC PO SCH ×2 (09:45→12:03)
[2016-08-03] MEDS ORDERED: MORPHINE SULFATE 4 MG/ML INJ IV PUSH PRN (10:00)
--- NOTE | 2016-08-03 10:25 | EKG ---
Date Performed: 08/03/2016 Time Performed: 05:22:13 PTAGE: 85 years EKG: ELECTRONIC VENTRICULAR PACEMAKER ABNORMAL RHYTHM ECG Compared to prior tracing no significa nt change PREVIOUS TRACING : 08/03/2016 00.07 DOCTOR: Vitor Hector Interpretating Date/Time 08/03/2016 10:24:07
--- NOTE | 2016-08-03 10:26 | EKG ---
Date Performed: 08/03/2016 Time Performed: 00:07:32 PTAGE: 85 years EKG: ELECTRONIC VENTRICULAR PACEMAKER ABNORMAL RHYTHM ECG Compared to prior tracing no significa nt change PREVIOUS TRACING : 07/08/2016 13.28 DOCTOR: iVtor Hector Interpretating Date/Time 08/03/2016 10:24:14
--- NOTE | 2016-08-03 11:11 | EKG ---
Date Performed: 08/03/2016 Time Performed: 06:59:17 PTAGE: 85 years EKG: ELECTRONIC VENTRICULAR PACER Since previous tracing, no significant change noted ABNORMAL E CG PREVIOUS TRACING : 08/03/2016 05.22 DOCTOR: Vitor Hector Interpretating Date/Time 08/03/2016 11:10:40
[2016-08-03] MEDS: HALOPERIDOL LACTATE 5 MG/ML AMP IM PRN ×2 (12:02→20:30)
[2016-08-03 12:14] LABS: AUTOMATED NEUTROPHIL # 9.8 TH/MM3 (1.8-7.7); BASOPHIL % 0.4 % (0.0-2.0); EOSINOPHIL # 0.4 TH/MM3 (0-0.4); EOSINOPHIL % 3.6 % (0.0-4.0); HEMATOCRIT 34.3 % (39.0-51.0); HEMO FLAGS DIFF FINAL; LYMPH % 5.7 % (9.0-44.0); LYMPHOCYTE # 0.7 TH/MM3 (1.0-4.8); MEAN CELL VOLUME 85.2 FL (80.0-100.0); MEAN CORPUSCULAR HEMOGLOBIN 27.7 PG (27.0-34.0); MEAN CORPUSCULAR HGB CONC 32.5 % (32.0-36.0); MONO % 4.3 % (0.0-8.0); PLATELET COUNT 224 TH/MM3 (150-450); RED BLOOD COUNT 4.03 MIL/MM3 (4.50-5.90); RED CELL DISTRIBUTION WIDTH 15.8 % (11.6-17.2); WHITE BLOOD COUNT 11.4 TH/MM3 (4.0-11.0)
[2016-08-03 12:48] LABS: CREATINE KINASE 151 U/L (39-308)
--- NOTE | 2016-08-03 16:21 | PD.CONS ---
HPI Service Cardiology Physicians Consult Requested By Dr Hector Reason for Consult Elevated troponin Primary Care Physician Juan Carlos Egan MD History of Present Illness The patient is an 85 year old male who was evaluated in our office once in 2015 with a cardiac history of cardiac dysrhythmia s/p PPM 2009, TIA, history of PAF, neurocardiogenic syncope, and GI bleed with perforated peptic ulcer. Per the medical records, the patient presented to the hospital from assisted living facility because the patient had a tremor noted then became somnolent, awoken to alertness with sternal rub. Vital signs at that time were: Blood pressure 89/52, heart rate 130, temperature 97.5, oxygen saturation 88%. Troponin is elevated. Per the son, his father has not complained on any recent chest pain. On evaluation, the patient is lethargic. Per the son, no acute concerns. (Olamide Rubin) Review of Systems ROS Limitations: Altered Mental Status (Olamide Rubin) Past Family Social History Allergies: Coded Allergies: Neosporin (Verified Allergy, Mild, rash, 08/03/16) per son Penicillin (Verified Adverse Reaction, Intermediate, rash , 08/03/16) Received Cefepime and zosyn 07/08/17 in ED w/o problems. Continue to monitor Past Medical History See HPI Past Surgical History ORIF right rib fractures 2012 PPM 2009 Laparotomy for SBO 2007 Appendectomy Reported Medications Reported Meds & Active Scripts Active Ultram (Tramadol HCl) 50 Mg Tab 50 Mg PO BID PRN Flomax (Tamsulosin HCl) 0.4 Mg Cap 0.4 Mg PO HS 30 Days Midodrine 5 Mg Tab 5 Mg PO TID 30 Days Namenda (Memantine) 10 Mg Tab 10 Mg PO BID 30 Days Escitalopram (Escitalopram Oxalate) 10 Mg Tab 10 Mg PO DAILY 30 Days Plavix (Clopidogrel Bisulfate) 75 Mg Tab 75 Mg PO DAILY 30 Days Reported Finasteride 5 Mg Tab 5 Mg PO DAILY Do not crush. Ceftin (Cefuroxime Axetil) 250 Mg Tab 250 Mg PO BID 10 Days Theragran-M (Multiple Vitamins W/ Minerals) 1 Tab 1 Tab PO DAILY Dulcolax Supp (Bisacodyl) 10 Mg Supp 10 Mg RECTAL HS PRN Mapap (Acetaminophen) 325 Mg Tab 650 Mg PO Q4HR PRN Milk of Magnesia Liq (Magnesium Hydroxide) 400 Mg/5 Ml Susp 30 Ml PO HS PRN Aricept (Donepezil) 10 Mg Tab 10 Mg PO DAILY Active Ordered Medications Current Medications Medications (Trade) Dose Ordered Sig/Pema Route Start Time Stop Time Status Last Admin (NS 1000 ml Inj) 1,000 ml @ 90 mls/hr Q11H7M IV 08/03/16 03:37 08/03/16 04:35 (Heparin Inj) 5,000 units Q8H SQ 08/03/16 06:00 08/03/16 14:29 (Narcan Inj) 0.4 mg UNSCH PRN IV 08/03/16 03:45 (Dulcolax Supp) 10 mg HS PRN RECTAL 08/03/16 04:00 (Plavix) 75 mg DAILY PO 08/03/16 09:00 08/03/16 09:30 (Aricept) 10 mg DAILY PO 08/03/16 09:00 08/03/16 09:30 (Lexapro) 10 mg DAILY PO 08/03/16 09:00 08/03/16 09:30 (Proscar) 5 mg DAILY PO 08/03/16 09:00 (Milk Of Magnesia Liq) 30 ml HS PRN PO 08/03/16 04:00 (Namenda) 10 mg BID PO 08/03/16 09:00 08/03/16 09:30 (Theragran M Tab) 1 tab DAILY PO 08/03/16 09:00 Tamsulosin HCl 0.4 mg 0.4 mg HS PO 08/03/16 21:00 (Maxipime Inj/NS Inj) 100 ml @ 200 mls/hr Q24H IV 08/03/16 04:00 08/03/16 04:34 (Ultram) 50 mg Q8H PRN PO 08/03/16 04:15 (Tylenol) 650 mg Q4H PRN PO 08/03/16 08:15 (Morphine Inj) 1 mg Q3H PRN IV PUSH 08/03/16 10:00 (Ecotrin Ec) 81 mg DAILY PO 08/03/16 10:00 08/03/16 12:03 (Haldol Inj) 2 mg Q8H PRN IM 08/03/16 11:15 08/03/16 12:02 Family History non contributory Social History Lives in assisted living facility (Olamide Rubin) Physical Exam Vital Signs Vital Signs Date Time Temp Pulse Resp B/P Pulse Ox O2 Delivery O2 Flow Rate FiO2 08/03/16 12:00 95.6 91 17 125/84 93 08/03/16 09:48 Nasal Cannula 3.00 08/03/16 08:15 94 Nasal Cannula 2.00 08/03/16 07:31 96.7 107 18 139/86 94 08/03/16 05:50 80 20 119/74 92 Nasal Cannula 3 08/03/16 05:43 Nasal Cannula 3.00 08/03/16 04:00 98.7 80 25 113/73 Nasal Cannula 3 08/03/16 02:00 94 24 138/89 Nasal Cannula 4 08/03/16 00:11 86 92 Nasal Cannula 3 08/03/16 00:08 92 Nasal Cannula 3 08/03/16 00:08 92 Nasal Cannula 3 08/03/16 00:00 83 16 108/69 92 08/02/16 23:20 80 Room Air Physical Exam GENERAL: Elderly male, son at bedside SKIN: Warm and dry. HEAD: Atraumatic. Normocephalic. EYES: Pupils equal and round ENT: No nasal bleeding or discharge. NECK: Trachea midline. CARDIOVASCULAR: Regular rate and rhythm. RESPIRATORY: No accessory muscle use.Breath sounds equal bilaterally. GASTROINTESTINAL: Abdomen soft, non-tender, nondistended. MUSCULOSKELETAL: Extremities without clubbing, cyanosis, or edema. NEUROLOGICAL: Lethargic, arouses to stimulation PSYCHIATRIC: Dementia Laboratory Laboratory Tests Test 08/02/16 08/03/16 08/03/16 08/03/16 23:15 01:45 05:15 11:15 White Blood Count 11.4 11.4 Red Blood Count 4.12 4.03 Hemoglobin 11.4 11.2 Hematocrit 34.6 34.3 Mean Corpuscular Volume 83.8 85.2 Mean Corpuscular Hemoglobin 27.6 27.7 Mean Corpuscular Hemoglobin 33.0 32.5 Concent Red Cell Distribution Width 15.3 15.8 Platelet Count 230 224 Mean Platelet Volume 8.9 9.0 Neutrophils (%) (Auto) 84.1 86.0 Lymphocytes (%) (Auto) 8.0 5.7 Monocytes (%) (Auto) 4.5 4.3 Eosinophils (%) (Auto) 2.6 3.6 Basophils (%) (Auto) 0.8 0.4 Neutrophils # (Auto) 9.5 9.8 Lymphocytes # (Auto) 0.9 0.7 Monocytes # (Auto) 0.5 0.5 Eosinophils # (Auto) 0.3 0.4 Basophils # (Auto) 0.1 0.0 CBC Comment DIFF FINAL DIFF FINAL Differential Comment Prothrombin Time 10.8 Prothromb Time International 1.0 Ratio Activated Partial 29.5 Thromboplast Time Sodium Level 144 Potassium Level 4.0 Chloride Level 110 Carbon Dioxide Level 23.1 Anion Gap 11 Blood Urea Nitrogen 51 44 Creatinine 2.61 2.23 Estimat Glomerular Filtration 23 Rate Random Glucose 129 Lactic Acid Level 1.1 Calcium Level 8.5 Phosphorus Level 3.3 Magnesium Level 2.5 Total Bilirubin 0.3 Aspartate Amino Transf 19 (AST/SGOT) Alanine Aminotransferase 27 (ALT/SGPT) Alkaline Phosphatase 102 Total Creatine Kinase 48 151 Troponin I 0.24 0.68 0.90 Total Protein 7.0 Albumin 3.0 Urine Color YELLOW Urine Turbidity HAZY Urine pH 5.0 Urine Specific [place] 1.019 Urine Protein 30 Urine Glucose (UA) NEG Urine Ketones NEG Urine Occult Blood SMALL Urine Nitrite NEG Urine Bilirubin NEG Urine Urobilinogen LESS THAN 2.0 Urine Leukocyte Esterase MOD Urine RBC 24 Urine WBC 24 Urine Squamous Epithelial <1 Cells Urine Bacteria RARE Urine Hyaline Casts 13 Urine Mucus FEW Urine Yeast (Budding) RARE Microscopic Urinalysis Comment CATH-CULTURE IND BUN/Creatinine Ratio 20 Creatine Kinase MB 4.0 Date/Time Procedure Status Source Growth 08/03/16 01:45 Urine Culture Received Urine Catheterized Urine Pending 08/03/16 00:05 Aerobic Blood Culture Received Blood Peripheral Pending 08/03/16 00:05 Anaerobic Blood Culture Received Blood Peripheral Pending 08/02/16 23:15 Aerobic Blood Culture - Preliminary Resulted Blood Peripheral NO GROWTH IN 1 DAY 08/02/16 23:15 Anaerobic Blood Culture - Preliminary Resulted Blood Peripheral NO GROWTH IN 1 DAY (Olamide Rubin) Result Diagram: 08/03/16 1115 08/03/16 0515 Imaging Last 72 hours Impressions Chest X-Ray 08/02/16 [id number] Signed Impressions: Service Date/Time: Tuesday, August 02, 2016 23:32 - CONCLUSION: 1. Cardiomegaly. No acute pulmonary disease. Vitor Haq MD (Olamide Rubin) Assessment and Plan Assessment and Plan ASSESSMENT Elevated troponin- likely demand ischemia. No obvious EKG changes to suggest ischemia. Patient is vpaced. The patient is DNR status. PPM Neurocardiogenic syncope History TIA on plavix UTI PLAN: Will continue to monitor the patient closely. Syncopal episode likely related to underlying infection, possible component of neurocardiogenic syncope. The patient has been treated with salt loading and midodrine in the past. Will continue to follow with you. Will have device checked for underlying cardiac dysrhythmia. Will treat for demand ischemia at this time. Pending patient's clinical status, may consider ischemic work up outpatient. Per Hospitalist note, Hospice to be considered. Patient seen and evaluated by Dr. Contreras. (Olamide Rubin) Assessment and Plan The exam, history, and the medical decision-making described in the above note were completed with the assistance of the mid-level provider. I reviewed and agree with the findings presented. I attest that I had a algp-ju-nial encounter with the patient on the same day, and personally performed and documented my assessment and findings in the medical record. At this point very ill with UTI, feel troponin elevation is multifactorial and secondary to the renal failure etc. (Anu Contreras MD) Olamide Rubin Aug 03, 2016 16:21 Anu Contreras MD Aug 03, 2016 18:42
[2016-08-03] MEDS ORDERED: TAMSULOSIN HCL 0.4 MG CAP PO SCH (21:00)
[2016-08-04 00:10] VITALS: BP 158/94; PULSE 86; RESP 20; TEMP 97.6; O2SAT 95
[2016-08-04] MEDS: CEFEPIME INJ 2,000 MG in SODIUM CHLORIDE 0.9% INJ 100 ML IV SCH (03:32)
[2016-08-04] MEDS: HALOPERIDOL LACTATE 5 MG/ML AMP IM PRN ×2 (05:09→13:40)
[2016-08-04] MEDS: HEPARIN SODIUM - SQ 10,000 UNITS/ML VIAL SQ SCH ×2 (05:10→13:40)
[2016-08-04 05:20] VITALS: BP 170/90; PULSE 68; RESP 20; TEMP 96.2; O2SAT 95
--- NOTE | 2016-08-04 07:13 | HHI.FPPN ---
Subjective Remarks Patient seen and examined. No acute events overnight. VSSAF. Patient is more awake and alert this morning. He knows that he is in the hospital but could not tell me which one. Denies any chest pain, shortness of breath, abdominal pain, or nausea. Per nurse, his mental status waxes and wanes, and he still gets combative intermittently. (Sally Geiger MD R3) Objective Vitals Vital Signs Date Time Temp Pulse Resp B/P Pulse Ox O2 Delivery O2 Flow Rate FiO2 08/04/16 05:20 96.2 68 20 170/90 95 08/04/16 00:10 97.6 86 20 158/94 95 08/03/16 22:12 98 Nasal Cannula 2.50 08/03/16 20:31 Nasal Cannula 3.00 08/03/16 20:20 97.2 80 21 147/90 94 08/03/16 15:34 97.5 76 16 128/65 97 08/03/16 12:00 95.6 91 17 125/84 93 08/03/16 09:48 Nasal Cannula 3.00 08/03/16 08:15 94 Nasal Cannula 2.00 08/03/16 07:31 96.7 107 18 139/86 94 I/O 08/03/16 08/03/16 08/03/16 08/04/16 08/04/16 08/04/16 07:00 15:00 23:00 07:00 15:00 23:00 Intake Total 820 ml 120 ml Output Total 850 ml 200 ml Balance -30 ml -80 ml Intake Oral 360 ml 120 ml IV Total 460 ml Output Urine Total 850 ml 200 ml # Voids 0 # Bowel Movements 0 0 (Sally Geiger MD R3) Result Diagram: 08/03/16 1115 08/03/16 0515 Imaging Last Impressions Chest X-Ray 08/02/16 [id number] Signed Impressions: Service Date/Time: Tuesday, August 02, 2016 23:32 - CONCLUSION: 1. Cardiomegaly. No acute pulmonary disease. Vitor Haq MD Objective Remarks GENERAL: Well-developed, well-nourished elderly white male lying in bed in no acute distress SKIN: Several bruises in various stages of healing present on the bilateral upper extremities. No sacral decubitus ulcer noted. HEAD: NC/AT EYES: PERRL. EOMI. No conjunctival injection or drainage. ENT: MMM, OP without erythema, tonsillar swelling, or exudate. NECK: Supple, no lymphadenopathy. No JVD. CARDIOVASCULAR: Pacemaker in place. NRRR. Normal S1/S2. No MRG RESPIRATORY: Lungs CTAB. No crackles or wheezes. GASTROINTESTINAL: Abdomen soft, non-distended, non-tender. No hepato- splenomegaly or palpable masses. MUSCULOSKELETAL: Extremities without clubbing, cyanosis, or edema. NEUROLOGICAL: Awake and alert. Oriented to person, cooperative. Moves all extremities. Normal speech. (Sally Geiger MD R3) A/P Assessment and Plan 85-year-old male with past medical history of hypertension, recurrent TIAs and multiple recent hospitalizations for postobstructive nephropathy and complications of indwelling Locke catheter admitted for UTI and elevated troponin. d/w Dr. Richardson Discharge Planning Family has decided to admit patient to hospice given overall declining health and comorbidities. Will be discharge to hospice care center today. (Sally Geiger MD R3) Attending Attestation Patient seen and examined. Case reviewed and discussed Agree with plan of care as discussed with me and documented in the resident note. Discussed plan of care with patient's son and daughter as well as hospice. ( Ela Richardson MD) Problem List: (1) Catheter-associated urinary tract infection Status: Acute Plan: Patient with indwelling catheter and history of multiple UTIs. Recent antibiotic use of Ceftin, 10 day course completed on 08/02/16 Cath UA on admission positive for moderate leuk esterase, RBC, WBC, and hyaline cast. Locke replaced in the ED. -Patient currently on Cefepime 2 g IV every 24 hours. Previous urine cultures have been sensitive to Macrobid thus will switch to Macrobid to complete 7-days of antibiotics in anticipation for discharge. -Blood culture NGTD -Urine culture NGTD (2) CINDI (acute kidney injury) Status: Resolved Plan: Creatinine of 2.61 on admission but trending down nicely s/p IVF. -Will discontinue IVFs as long as patient can tolerate po -Monitor renal function. Repeat BMP as outpatient (3) Elevated troponin Status: Acute Plan: Troponin as high as 0.98. No changes on EKG; paced rhythm -Cardiology consulted: * Elevated troponin likely secondary to CINDI and/or infection * Continue medical management with Aspirin and Plavix (4) HTN (hypertension) Status: Chronic Plan: Stable, continue home meds (5) History of recurrent TIAs Status: Chronic Plan: -Continue home Plavix (6) Alzheimer disease Status: Chronic Plan: Likely related to urinary tract infection or dehydration and subsequent acute kidney injury. Patient more lucid this morning. Oriented to person and place (knew he was in the hospital) -Tx urinary tract infection as above -Frequent redirection, prevention -Continue home Aricept, Namenda (7) Orthostatic hypotension Status: Chronic Plan: Blood pressure currently stable, hold home midodrine (8) Cough Status: Acute Plan: No evidence of pneumonia. Could be upper respiratory infection or simply poor respiratory effort. -Incentive spirometry every 4 hours while awake -Chest vibratory therapy every 6 hours (9) Nutrition, metabolism, and development symptoms Status: Acute Plan: Fluids: Discontinue IVFs as patient is tolerating po Electrolytes: Monitor and replete as needed Nutrition: diet regular adult (10) DVT Prophylaxis Status: Acute Plan: DVT: Heparin subcutaneous every 8 hours 5000 units (Sally Geiger MD R3) Problem Qualifiers (1) Catheter-associated urinary tract infection: Qualified Code: T83.511A - Urinary tract infection associated with indwelling urethral catheter, initial encounter Sally Geiger MD R3 Aug 04, 2016 07:13 Ela Richardson MD Aug 04, 2016 17:12 Fluids: NS at 1 25 mL/h Electrolytes: Monitor and replete as needed Nutrition: diet regular adult DVT: Heparin subcutaneous every 8 hours 5000 units Problem Qualifiers (1) Catheter-associated urinary tract infection: Qualified Code: T83.511A - Urinary tract infection associated with indwelling urethral catheter, initial encounter (2) Altered mental status: Qualified Code: R41.0 - Delirium Sally Geiger MD R3 Aug 04, 2016 07:13
[2016-08-04] MEDS ORDERED: hydrALAZINE HCL 25 MG TAB PO PRN (07:15)
[2016-08-04] MEDS: SODIUM CHLOR 0.9% 1000 ML INJ 1,000 ML IV SCH (07:28)
[2016-08-04 08:12] VITALS: BP 152/86; PULSE 72; RESP 17; TEMP 96.7; O2SAT 94
[2016-08-04 08:20] LABS: AUTOMATED NEUTROPHIL # 7.6 TH/MM3 (1.8-7.7); BASOPHIL # 0.1 TH/MM3 (0-0.2); BASOPHIL % 0.9 % (0.0-2.0); EOSINOPHIL # 0.8 TH/MM3 (0-0.4); EOSINOPHIL % 7.8 % (0.0-4.0); HEMATOCRIT 33.4 % (39.0-51.0); HEMO FLAGS DIFF FINAL; LYMPH % 10.7 % (9.0-44.0); LYMPHOCYTE # 1.1 TH/MM3 (1.0-4.8); MEAN CELL VOLUME 84.7 FL (80.0-100.0); MEAN CORPUSCULAR HGB CONC 33.1 % (32.0-36.0); MONO % 5.3 % (0.0-8.0); NEUT % 75.3 % (16.0-70.0); PLATELET COUNT 216 TH/MM3 (150-450); RED BLOOD COUNT 3.94 MIL/MM3 (4.50-5.90); RED CELL DISTRIBUTION WIDTH 15.8 % (11.6-17.2); WHITE BLOOD COUNT 10.2 TH/MM3 (4.0-11.0)
[2016-08-04] MEDS: ASPIRIN EC 81 MG TABEC PO SCH (08:25)
[2016-08-04] MEDS: MEMANTINE HCL 10 MG TAB PO SCH (08:25)
[2016-08-04] MEDS: FINASTERIDE 5 MG TAB PO SCH (08:25)
[2016-08-04] MEDS: ESCITALOPRAM OXALATE 10 MG TAB PO SCH (08:25)
[2016-08-04] MEDS: CLOPIDOGREL 75 MG TAB PO SCH (08:26)
[2016-08-04] MEDS: MULTIVITAMINS/MINERALS THERAPEUTIC TAB PO SCH (08:26)
[2016-08-04] MEDS: DONEPEZIL HCL 5 MG TAB PO SCH (08:26)
[2016-08-04 08:50] LABS: BICARBONATE 26.8 MEQ/L (21.0-32.0); POTASSIUM 4.3 MEQ/L (3.5-5.1)
[2016-08-04 11:18] VITALS: O2SAT 93
[2016-08-04] MEDS ORDERED: MACR100C2 PO (11:57)
--- NOTE | 2016-08-04 11:57 | HHI.DCPOC ---
Discharge Care Plan Diagnosis: (1) UTI (urinary tract infection) (2) Frequent falls (3) NSTEMI (non-ST elevated myocardial infarction) Goals to Promote Your Health * To prevent worsening of your condition and complications * To maintain your health at the optimal level Directions to Meet Your Goals Take your medications as prescribed Follow your dietary instruction Follow activity as directed Keep your appointments as scheduled Take your immunizations and boosters as scheduled If your symptoms worsen call your PCP, if no PCP go to Urgent Care Center or Emergency Room Smoking is Dangerous to Your Health. Avoid second hand smoke Call the 24-hour hour crisis hotline for domestic abuse at Sally Geiger MD R3 Aug 04, 2016 11:57
[2016-08-04 12:00] VITALS: BP 160/84; PULSE 76; RESP 18; TEMP 96.8; O2SAT 96
== END 2016-08-04 18:05 | disposition hospice, inpatient (51) | DRG 699 ==
LOC: NEPC 23:16 → NEDA 08-03 03:06 → N06A 08-03 06:07
PROVIDERS: ADMIT Family Medicine; ATTEND Family Medicine
DX: T83.518A Infection and inflammatory reaction due to other urinary catheter, initial encounter (principal); N39.0 Urinary tract infection, site not specified; N17.9 Acute kidney failure, unspecified; I48.0 Paroxysmal atrial fibrillation; E86.0 Dehydration; G30.9 Alzheimer's disease, unspecified; I10 Essential (primary) hypertension; F02.80 Dementia in other diseases classified elsewhere, unspecified severity, without behavioral disturbance, psychotic disturbance, mood disturbance, and anxiety; I95.1 Orthostatic hypotension; Z86.73 Personal history of transient ischemic attack (TIA), and cerebral infarction without residual deficits; Z87.11 Personal history of peptic ulcer disease; Z66 Do not resuscitate; Z95.0 Presence of cardiac pacemaker; Z88.6 Allergy status to analgesic agent; Z88.0 Allergy status to penicillin; Z87.891 Personal history of nicotine dependence; Y84.6 Urinary catheterization as the cause of abnormal reaction of the patient, or of later complication, without mention of misadventure at the time of the procedure; Z87.440 Personal history of urinary (tract) infections
CPT/HCPCS: 51702; 71010; 80048; 80053; 81001; 82550; 82552; 82565; 83605; 83735; 84100; 84484; 84520; 85025; 85610; 85730; 87040; 87086; 87641; 93005; 94150; 94667; 94668; 96360; J0692; J1630; J1644; J7030